=== PATIENT | male | born 1960 | race Caucasian/White ===

== ENCOUNTER 2017-02-03 07:32 | Inpatient (IN) | payer OTHER ==
[2017-02-03] VITALS (10 sets, daily range): BP systolic 92–123; BP diastolic 53–73
[~2017-02-03] VITALS: Ht 165.1 cm; Wt 57.2 kg
[~2017-02-03 07:32] MED LIST: ASPI-482 PO; DIAZ5TAB PO; LEVE500T56 PO; OMEP20CA9 PO; OXYC-323 PO; PANT40TA3 PO
[2017-02-03] MEDS ORDERED: IV NORMAL SALINE 500ML BAG 500 ML IV ONE (07:45)
--- NOTE | 2017-02-03 07:53 | EKG ---
[facility] [address] [place] [address] Test Date: 2017-02-03 Test Time: 07:43:37 Pat Name: MIK BRISENO Department: Room: Gender: M Ncr Operator: : [id number] Requested By: NO NOLAND Order Number: [id number] Reading MD: Yuliana Flores Measurements Intervals [place] Rate: 61 P: 48 LA: 152 QRS: 36 QRSD: 100 T: 51 QT: 424 QTc: 433 Interpretive Statements SINUS RHYTHM NORMAL EKG Electronically Signed On 02-06-2017 11:01:51 CDT by Yuliana Flores
--- NOTE | 2017-02-03 07:55 | PHYS DOC ---
Past Medical History Past Medical History: Cancer, GERD, Hepatitis, Seizure, Additional Disease Additional Past Medical Histor: Hepatitis A,B,C, PANCREATIC CANCER Past Surgical History: No Surgical History Alcohol Use: Heavy Drug Use: Marijuana Adult General Chief Complaint Chief Complaint: MECHANICAL FALL HPI HPI Patient is a 57 year old male who presents with fall, possible syncope. Patient states he was at the [facility], walking down a flight of stairs. He is unsure if he experienced syncopal episode or just became weak in his legs and fell. Unsure how many stairs he descended during the fall. Unsure if he lost consciousness. Complains of headache, neck pain, right-sided rib pain, right upper arm pain, left wrist pain, bilateral knee pain. Did not ambulate after the fall. Unsure if he takes any blood thinners. Denies chest pain, palpitations, shortness of breath, extremity numbness or weakness preceding the fall. Review of Systems Review of Systems Constitutional: Denies fever or chills Eyes: Denies change in visual acuity HENT: Denies nasal congestion or sore throat Respiratory: Denies cough or shortness of breath Cardiovascular: Denies chest pain or edema GI: Denies abdominal pain, nausea, vomiting Musculoskeletal: Reports neck pain, rib pain, and extremity pain as above Integument: Denies rash or skin lesions Neurologic: Reports headache, denies focal weakness or sensory changes Current Medications Current Medications Current Medications Medications (Trade) Dose Ordered Sig/Sylvie Start Time Stop Time Status Last Admin Dose Admin Sodium Chloride 500 ml @ 0 mls/hr 1X ONCE 02/03/17 07:45 02/03/17 07:47 DC 02/03/17 11:04 0 MLS/HR Allergies Allergies Allergies Coded Allergies Type Severity Reaction Last Updated Verified codeine Allergy Intermediate hived 04/25/16 Yes egg Allergy Intermediate 04/25/16 Yes Physical Exam Physical Exam Constitutional: Frail, poor hygiene, no acute distress, non-toxic appearance. HENT: Normocephalic, atraumatic, bilateral external ears normal, oropharynx moist, nose normal. Eyes: PERRLA, EOMI, conjunctiva normal, no discharge. Neck: supple, no stridor. Diffuse midline C-spine tenderness is present Cardiovascular: RRR, no murmurs, no edema. Lungs & Thorax: Diminished, LCTAB, no wheezing, no respiratory distress. Diffuse right-sided rib pain without deformity, step-off, crepitus, ecchymosis Abdomen: soft, nontender, nondistended. Skin: Warm, dry, no erythema, no rash. 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 Left wrist without swelling or deformity, diffusely tender with palpation, no forearm, elbow, shoulder tenderness with palpation, radial pulse 2 +, radial/median/ulnar nerve sensory and motor function intact. Bilateral knees without swelling or deformity, diffusely tender with palpation, pain with flexion bilaterally, negative anterior/posterior drawer bilaterally, stable to valgus/varus stress bilaterally, bilateral DP/PT palpable, sensation intact to bilateral feet Neurologic: Alert and oriented X 3, CN2-12 grossly intact, symmetric strength/ sensation to lower extremities, intact strength/sensation to LUE, RUE above elbow amputation, no focal deficits noted. Psychologic: flat affect Current Patient Data Vital Signs Vital Signs Date Time Temp Pulse Resp B/P (MAP) Pulse Ox O2 Delivery O2 Flow Rate FiO2 02/03/17 07:32 98.4 61 20 124/64 (84) 97 Room Air 98.4 Lab Values Laboratory Tests Test 02/03/17 09:35 White Blood Count 3.6 x10^3/uL (4.0-11.0) L Red Blood Count 3.86 x10^6/uL (4.30-5.70) L Hemoglobin 12.2 g/dL (13.0-17.5) L Hematocrit 36.7 % (39.0-53.0) L Mean Corpuscular Volume 95 fL (79-100) Mean Corpuscular Hemoglobin 32 pg (25-35) Mean Corpuscular Hemoglobin Concent 33 g/dL (31-37) Red Cell Distribution Width 24.6 % (11.5-14.5) H Platelet Count 62 x10^3/uL (140-400) L Neutrophils (%) (Auto) 46 % (31-73) Lymphocytes (%) (Auto) 37 % (24-48) Monocytes (%) (Auto) 12 % (0-9) H Eosinophils (%) (Auto) 4 % (0-3) H Basophils (%) (Auto) 1 % (0-3) Neutrophils # (Auto) 1.7 x10^3uL (1.8-7.7) L Lymphocytes # (Auto) 1.4 x10^3/uL (1.0-4.8) Monocytes # (Auto) 0.4 x10^3/uL (0.0-1.1) Eosinophils # (Auto) 0.1 x10^3/uL (0.0-0.7) Basophils # (Auto) 0.0 x10^3/uL (0.0-0.2) Platelet Estimate Pending Prothrombin Time 15.5 SEC (11.7-14.0) H Prothrombin Time INR 1.3 (0.8-1.1) H Sodium Level 140 mmol/L (136-145) Potassium Level 3.7 mmol/L (3.5-5.1) Chloride Level 105 mmol/L (98-107) Carbon Dioxide Level 26 mmol/L (21-32) Anion Gap 9 (6-14) Blood Urea Nitrogen 15 mg/dL (8-26) Creatinine 0.8 mg/dL (0.7-1.3) Estimated GFR (Cockcroft-Gault) 99.6 BUN/Creatinine Ratio 19 (6-20) Glucose Level 102 mg/dL (70-99) H Calcium Level 8.8 mg/dL (8.5-10.1) Total Bilirubin 1.8 mg/dL (0.2-1.0) H Aspartate Amino Transferase (AST) 95 U/L (15-37) H Alanine Aminotransferase (ALT) 51 U/L (16-63) Alkaline Phosphatase 94 U/L (46-116) Troponin I Quantitative < 0.017 ng/mL (0.000-0.055) AZ-Mxg-S-Type Natriuretic Peptide 72 pg/mL (0-124) Total Protein 6.8 g/dL (6.4-8.2) Albumin 2.4 g/dL (3.4-5.0) L Albumin/Globulin Ratio 0.5 (1.0-1.7) L Ethyl Alcohol Level < 10 mg/dL (0-10) Laboratory Tests 02/03/17 09:35 Laboratory Tests 02/03/17 09:35 EKG EKG Interpreted by me: Normal sinus rhythm rate 61, no acute ST or T wave changes, normal intervals, no ectopy.[] Radiology/Procedures Radiology/Procedures PROCEDURE: RIBS RIGHT AND PA CHEST Indication fall. Pain. A single view of the chest was obtained as well as films targeted to right ribs. The chest is compared to an examination 10/09/2014. The heart and pulmonary vessels and mediastinum appear normal. The lungs are clear of acute infiltrates. There is no pleural fluid or pneumothorax. There is slight irregularity involving some of the mid and lower right ribs. This has a chronic appearance. An acute rib fracture is not seen. IMPRESSION: No acute finding apparent in the chest. No acute right rib fracture seen DICTATED and SIGNED BY: MICHELE NAVARRO MD DATE: 02/03/17923 PROCEDURE: KNEE BILAT 3V Indication fall, pain. AP oblique and lateral views of both knees were obtained. No fracture or dislocation or acute bony abnormality is seen involving either knee. There is possible chondrocalcinosis associated with the right knee. IMPRESSION: No acute bony finding DICTATED and SIGNED BY: MICHELE NAVARRO MD DATE: 02/03/17929 PROCEDURE: HUMERUS RIGHT; WRIST 3V LEFT Right humerus, 2 views, 02/03/2017: History: Fall, pain There is patchy bony demineralization. There has been previous amputation of the right arm at the distal humeral level. No acute fracture or bony abnormality is detected. IMPRESSION: 1. Patchy bony demineralization. 2. No acute bony abnormality is detected. Left wrist, 3 views, 02/03/2017: History: Fall, pain The bony structures are demineralized. There is a surgical screw traversing an old navicular fracture. There is widening of the scapholunate distance compatible with ligamentous injury, probably old. There are moderate degenerative changes at the radiocarpal articulation. A lucency in the distal radius is compatible with an associated degenerative type cysts. There is moderate degenerative change at the first CMC joint. No definite acute fracture is seen. IMPRESSION: Old posttraumatic, postsurgical and moderate degenerative changes as described above. DICTATED and SIGNED BY: JOSE DANIEL ARZATE MD DATE: 02/03/17929 PROCEDURE: CT HEAD AND CERVICAL SPINE WO CT of the head without contrast, 02/03/2017: History: Fall, head and neck pain Comparison is made to a study from 04/23/2016. There is moderate cerebral atrophy. There are minimal deep white matter lucencies bilaterally compatible with chronic ischemic change. There is a small subependymal focus of increased density along the lateral aspect of the posterior portion of the body of the left lateral ventricle. 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 The ventricles are unchanged in size. There is no evidence of acute intracranial hemorrhage or mass effect. IMPRESSION: 1. Chronic findings as described above. 2. No acute intracranial abnormality is detected. CT of the cervical spine without contrast, 02/03/2017: Noncontrast scans were obtained with multiplanar reconstructions produced. There is moderate disc space narrowing and marginal spurring throughout the mid and lower cervical spine. There are moderate degenerative changes involving scattered facet joints bilaterally. There is minimal associated retrolisthesis at C4-5. The combination of findings is causing borderline central spinal stenosis at C4-5 as well as moderate foraminal narrowing at several levels bilaterally. No acute fracture or dislocation is identified. IMPRESSION: 1. Moderately severe multilevel degenerative change. 2. No acute bony abnormality is detected. PQRS Compliance Statement: One or more of the following individualized dose reduction techniques were utilized for this examination: 1. Automated exposure control 2. Adjustment of the mA and/or kV according to patient size 3. Use of iterative reconstruction technique DICTATED and SIGNED BY: JOSE DANIEL ARZATE MD DATE: 02/03/17 0821 [] Course & Med Decision Making Course & Med Decision Making Pertinent Labs and Imaging studies reviewed. (See chart for details) The patient presents with pain after a fall. Possible syncopal episode. Obtained imaging of areas of concern. The cervical collar was placed upon arrival and clinically cleared by me after negative imaging of the cervical spine. Patient unable to ambulate independently. Labs pending at time of admission. I did recommend admission to the hospital for further evaluation and treatment including monitor monitoring after syncopal episode, [] Dragon Disclaimer Dragon Disclaimer This electronic medical record was generated, in whole or in part, using a voice recognition dictation system. Departure Departure Impression: Primary Impression: Syncope Additional Impressions: Closed head injury Cervical strain Multiple contusions Pancytopenia Disposition: ADMITTED INPATIENT Condition: STABLE Referrals: CHESTER MOSCOSO MD (PCP) Problem Qualifiers NO NOLAND MD Feb 03, 2017 07:55
--- NOTE | 2017-02-03 08:33 | RAD ---
CT of the head without contrast, 02/03/2017: History: Fall, head and neck pain Comparison is made to a study from 04/23/2016. There is moderate cerebral atrophy. There are minimal deep white matter lucencies bilaterally compatible with chronic ischemic change. There is a small subependymal focus of increased density along the lateral aspect of the posterior portion of the body of the left lateral ventricle. 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 The ventricles are unchanged in size. There is no evidence of acute intracranial hemorrhage or mass effect. IMPRESSION: 1. Chronic findings as described above. 2. No acute intracranial abnormality is detected. CT of the cervical spine without contrast, 02/03/2017: Noncontrast scans were obtained with multiplanar reconstructions produced. There is moderate disc space narrowing and marginal spurring throughout the mid and lower cervical spine. There are moderate degenerative changes involving scattered facet joints bilaterally. There is minimal associated retrolisthesis at C4-5. The combination of findings is causing borderline central spinal stenosis at C4-5 as well as moderate foraminal narrowing at several levels bilaterally. No acute fracture or dislocation is identified. IMPRESSION: 1. Moderately severe multilevel degenerative change. 2. No acute bony abnormality is detected. PQRS Compliance Statement: One or more of the following individualized dose reduction techniques were utilized for this examination: 1. Automated exposure control 2. Adjustment of the mA and/or kV according to patient size 3. Use of iterative reconstruction technique
--- NOTE | 2017-02-03 09:33 | RAD ---
Indication fall. Pain. A single view of the chest was obtained as well as films targeted to right ribs. The chest is compared to an examination 10/09/2014. The heart and pulmonary vessels and mediastinum appear normal. The lungs are clear of acute infiltrates. There is no pleural fluid or pneumothorax. There is slight irregularity involving some of the mid and lower right ribs. This has a chronic appearance. An acute rib fracture is not seen. IMPRESSION: No acute finding apparent in the chest. No acute right rib fracture seen
--- NOTE | 2017-02-03 09:36 | RAD ---
Indication fall, pain. AP oblique and lateral views of both knees were obtained. No fracture or dislocation or acute bony abnormality is seen involving either knee. There is possible chondrocalcinosis associated with the right knee. IMPRESSION: No acute bony finding
--- NOTE | 2017-02-03 09:37 | RAD ---
Right humerus, 2 views, 02/03/2017: History: Fall, pain There is patchy bony demineralization. There has been previous amputation of the right arm at the distal humeral level. No acute fracture or bony abnormality is detected. IMPRESSION: 1. Patchy bony demineralization. 2. No acute bony abnormality is detected. Left wrist, 3 views, 02/03/2017: History: Fall, pain The bony structures are demineralized. There is a surgical screw traversing an old navicular fracture. There is widening of the scapholunate distance compatible with ligamentous injury, probably old. There are moderate degenerative changes at the radiocarpal articulation. A lucency in the distal radius is compatible with an associated degenerative type cysts. There is moderate degenerative change at the first CMC joint. No definite acute fracture is seen. IMPRESSION: Old posttraumatic, postsurgical and moderate degenerative changes as described above.
[2017-02-03 09:42] LABS: BASO % 1 % (0-3); EOS % 4 % (0-3); HEMATOCRIT 36.7 % (39.0-53.0); HEMOGLOBIN 12.2 g/dL (13.0-17.5); LYMPH # 1.4 x10^3/uL (1.0-4.8); LYMPH % 37 % (24-48); MEAN CORPUSCULAR HEMOGLOBIN 32 pg (25-35); MEAN CORPUSCULAR HGB CONC 33 g/dL (31-37); MEAN CORPUSCULAR VOLUME 95 fL (79-100); MONO % 12 % (0-9); NEUT % 46 % (31-73); PLATELET COUNT 62 x10^3/uL (140-400); RED BLOOD COUNT 3.86 x10^6/uL (4.30-5.70); RED CELL DISTRIBUTION WIDTH 24.6 % (11.5-14.5); WHITE BLOOD COUNT 3.6 x10^3/uL (4.0-11.0)
[2017-02-03 10:00] LABS: CALCIUM 8.8 mg/dL (8.5-10.1); CREATININE 0.8 mg/dL (0.7-1.3); GFR 99.6; POTASSIUM 3.7 mmol/L (3.5-5.1)
[2017-02-03 10:02] LABS: INR 1.3 (0.8-1.1); PROTHROMBIN TIME PATIENT 15.5 SEC (11.7-14.0)
[2017-02-03 10:07] LABS: ALBUMIN 2.4 g/dL (3.4-5.0); ALBUMIN/GLOBULIN RATIO 0.5 (1.0-1.7); TOTAL BILIRUBIN 1.8 mg/dL (0.2-1.0); TOTAL PROTEIN 6.8 g/dL (6.4-8.2)
[2017-02-03] MEDS ORDERED: ONDANSETRON PF 4 MG/2 ML VIAL. IV PRN (10:15)
--- NOTE | 2017-02-03 11:43 | ACF ---
Admit Criteria Forms Admit Criteria Forms Admit Criteria Forms SYNCOPE ( Place 'X' for any and all applicable criteria): Admission is indicated for syncope and 1 or more of the following(1)(2)(3)(4)(5) (6)(7): [ ]I. Hemodynamic instability [ ]II. Suspicion of imminently dangerous cause (eg, subarachnoid hemorrhage, pulmonary embolism) [ ]III. Syncope causing injury requiring hospitalization [ ]IV. Respiratory distress [ ]V. Acute coronary syndrome identified. See Myocardial Infarction or Angina guideline [X ]V. Inpatient admission required rather than observation care (Also use Syncope: Observation Care Criteria as appropriate) because of 1 or more of the following: [ ]1) Cardiac arrhythmias of immediate concern identified or strongly suspected (eg, needs electrophysiologic study) [ ]2) Structural cardiac disorder (eg, aortic stenosis) suspected as cause that requires immediate treatment [ ]3) Neurologic signs or symptoms that are severe or persistent (eg, stroke, seizures, altered mental status) [ ]4) Severe electrolyte abnormalities requiring inpatient care [ ]5) Respiratory symptoms (eg, dyspnea, tachypnea) that are severe or persistent [ ]6) Dehydration that is severe or persistent [ ]7) Continuous intravenous infusion of anticoagulation, platelet inhibitor, vasoactive, or antiarrhythmic medication(15)(16 [ ]8) Pulmonary artery catheter monitoring [ ]9) Temporary pacemaker placement [ ]10) Emergent cardioversion [X ]11) Other condition,treatment,or monitoring requiring inpatient admission Extended stay beyond goal length of stay may be needed for(28) [ ]a) Dangerous arrhythmia(15)(23)(27)(29) [ ]b) Myocardial ischemia [ ]c) Seizure disorder [ ]d) Syncope-related injuries The original [employer] content created by [employer] has been revised. The portions of the content which have been revised are identified through the use of italic text, and [employer] has neither reviewed nor approved the modified material. All other unmodified content is copyright [employer]. Please see references footnoted in the original [employer] edition 2014 MERLE MORAN Feb 03, 2017 11:43
[2017-02-03 11:53] LABS: BARBITURATES NEG (NEG); BENZODIAZEPINES POS (NEG); BILIRUBIN,URINE NEGATIVE (NEG); CANNABINOIDS NEG (NEG); COCAINE NEG (NEG); GLUCOSE,URINE NEGATIVE (NEG); METHADONE NEG (NEG); NITRITE,URINE NEGATIVE (NEG); OPIATES NEG (NEG); PHENCYCLIDINE NEG (NEG); PROTEIN,URINE NEGATIVE (NEG-TRACE)
[2017-02-03 12:09] LABS: BACTERIA,URINE FEW /HPF (0-FEW); RBC,URINE OCC /HPF (0-2); WBC,URINE OCC /HPF (0-4)
[2017-02-03] MEDS ORDERED: PNEUMOCOCCAL VAX SCREEN BY RX. MC ONE (14:00)
[2017-02-03] MEDS ORDERED: PNEUMOC CONJ VACC 23-VALENT 0.5 ML VIAL. VAX IM ONE (14:15)
[2017-02-03 14:40] LABS: ANISOCYTOSIS MOD; PLT ESTIMATE DECREASED (ADEQUATE)
[2017-02-03] MEDS ORDERED: DOCUSATE SODIUM 100 MG CAPSULE. PO PRN (15:00)
[2017-02-03] MEDS ORDERED: ACETAMINOPHEN 325 MG TABLET. PO PRN (15:00)
[2017-02-03] MEDS ORDERED: hydrALAZINE 20 MG/ML VIAL. IVP PRN (15:00)
[2017-02-03] MEDS ORDERED: MORPHINE SULFATE 4 MG/ML DISP.SYRIN. IV PRN (15:30)
[2017-02-03] MEDS: oxyCODONE/APAP 5/325 1 TAB TABLET PO PRN ×2 (15:49→20:38)
--- NOTE | 2017-02-03 16:40 | PDOC1 ---
History and Physical Date of Admission Date of Admission 02/03/17 Identification/Chief Complaint Chief Complaint syncope, fall Problems: Source Source: Chart review, Patient History of Present Illness History of Present Illness HPI HPI Patient is a 57 year old male who presents with fall, and syncope today. pt is a very poor historian. He said he was recently in rehab post his right shoulder amputation from falling. He also said he has an apt but then told me he has been in a [facility] after dc from rehab 4 days ago, and not on any meds for at least days including the pain pain meds. Today he was walking downstairs, then felt lightheaded and denies syncoped. now he c/o back pain, and right shoulder pain ,and left wrist pain which he got fx 6months ago. all images in ER is ok except chronic changes. Denies chest pain, palpitations, shortness of breath, extremity numbness or weakness preceding the fall. Past Medical History Cardiovascular: No pertinent hx Pulmonary: No pertinent hx CENTRAL NERVOUS SYSTEM: Periperal neuropathy, Seizure GI: No pertinent hx Heme/Onc: Cancer Hepatobiliary: Hep A/B/C Psych: Addictions, Bipolar Renal/: No pertinent hx Endocrine: No pertinent hx Past Surgical History Past Surgical History: Other Family History Family History: Heart Disease, Family History Unknown Social History Smoke: No ALCOHOL: heavy Drugs: Marijuana Current Problem List Problem List Problems Medical Problems: (1) Cervical strain Status: Acute (2) Closed head injury Status: Acute (3) Multiple contusions Status: Acute (4) Pancytopenia Status: Acute (5) Syncope Status: Acute Current Medications Current Medications Current Medications Medications (Trade) Dose Ordered Sig/Sylvie Start Time Stop Time Status Last Admin Dose Admin Acetaminophen (Tylenol) 650 mg PRN Q6HRS PRN 02/03/17 15:00 Docusate Sodium (Colace) 100 mg PRN DAILY PRN 02/03/17 15:00 Hydralazine HCl (Apresoline) 10 mg PRN Q4HRS PRN 02/03/17 15:00 Morphine Sulfate 4 mg PRN Q2HR PRN 02/03/17 15:30 Ondansetron HCl (Zofran) 4 mg PRN Q6HRS PRN 02/03/17 15:00 Oxycodone/ Acetaminophen (Percocet 5/325) 1 tab PRN Q4HRS PRN 02/03/17 15:00 02/03/17 15:49 1 TAB Pneumococcal Polyvalent Vaccine (Do NOT chart on this placeholder) 0.5 each 1X ONCE 02/03/17 14:00 02/03/17 14:01 UNV Pneumococcal Polyvalent Vaccine (Pneumovax 23) 0.5 ml ONCE ONCE 02/03/17 14:15 02/03/17 14:16 DC 02/03/17 15:53 0.5 ML Sodium Chloride 500 ml @ 0 mls/hr 1X ONCE 02/03/17 07:45 02/03/17 07:47 DC 02/03/17 11:04 0 MLS/HR Tramadol HCl (Ultram) 50 mg PRN Q6HRS PRN 02/03/17 15:00 Allergies Allergies Allergies Coded Allergies Type Severity Reaction Last Updated Verified codeine Allergy Intermediate hived 04/25/16 Yes egg Allergy Intermediate 04/25/16 Yes ROS Review of System CONSTITUTIONAL: No fever or chills EYES: No recent changes SKIN: No rash or itching CARDIOVASCULAR: No chest pain, syncope, palpitations, or edema RESPIRATORY: No SOB or cough GASTROINTESTINAL: No nausea, vomiting or abdominal pain NEUROLOGICAL: No headaches or weakness ENDOCRINE: No cold or heat intolerance GENITOURINARY: No urgency or frequency of urination MUSCULOSKELETAL: No back pain or joint pain LYMPHATICS: No enlarged lymph nodes PSYCHIATRIC: No anxiety or depression Physical Exam Physical Exam GEN.: No apparent distress. Alert and oriented. HEENT: Head is normocephalic, atraumatic NECK: Supple. LUNGS: Clear to auscultation. HEART: RRR, S1, S2 present. Peripheral pulses intact ABDOMEN: Soft, nontender. Positive bowel sounds. EXTREMITIES: Without any cyanosis. right upper ext amputated NEUROLOGIC: Normal speech, normal tone PSYCHIATRIC: Normal affect, normal mood. SKIN: No ulcerations Vitals Vitals Vital Signs Date Time Temp Pulse Resp B/P (MAP) Pulse Ox O2 Delivery O2 Flow Rate FiO2 02/03/17 15:49 18 Room Air 02/03/17 15:00 97.1 55 118/69 (85) 98 97.1 Labs Labs Laboratory Tests Test 02/03/17 09:35 02/03/17 10:30 White Blood Count 3.6 x10^3/uL (4.0-11.0) Red Blood Count 3.86 x10^6/uL (4.30-5.70) Hemoglobin 12.2 g/dL (13.0-17.5) Hematocrit 36.7 % (39.0-53.0) Mean Corpuscular Volume 95 fL (79-100) Mean Corpuscular Hemoglobin 32 pg (25-35) Mean Corpuscular Hemoglobin Concent 33 g/dL (31-37) Red Cell Distribution Width 24.6 % (11.5-14.5) Platelet Count 62 x10^3/uL (140-400) Neutrophils (%) (Auto) 46 % (31-73) Lymphocytes (%) (Auto) 37 % (24-48) Monocytes (%) (Auto) 12 % (0-9) Eosinophils (%) (Auto) 4 % (0-3) Basophils (%) (Auto) 1 % (0-3) Neutrophils # (Auto) 1.7 x10^3uL (1.8-7.7) Lymphocytes # (Auto) 1.4 x10^3/uL (1.0-4.8) Monocytes # (Auto) 0.4 x10^3/uL (0.0-1.1) Eosinophils # (Auto) 0.1 x10^3/uL (0.0-0.7) Basophils # (Auto) 0.0 x10^3/uL (0.0-0.2) Platelet Estimate Decreased (ADEQUATE) Anisocytosis Mod Prothrombin Time 15.5 SEC (11.7-14.0) Prothromb Time International Ratio 1.3 (0.8-1.1) Sodium Level 140 mmol/L (136-145) Potassium Level 3.7 mmol/L (3.5-5.1) Chloride Level 105 mmol/L (98-107) Carbon Dioxide Level 26 mmol/L (21-32) Anion Gap 9 (6-14) Blood Urea Nitrogen 15 mg/dL (8-26) Creatinine 0.8 mg/dL (0.7-1.3) Estimated GFR (Cockcroft-Gault) 99.6 BUN/Creatinine Ratio 19 (6-20) Glucose Level 102 mg/dL (70-99) Calcium Level 8.8 mg/dL (8.5-10.1) Total Bilirubin 1.8 mg/dL (0.2-1.0) Aspartate Amino Transf (AST/SGOT) 95 U/L (15-37) Alanine Aminotransferase (ALT/SGPT) 51 U/L (16-63) Alkaline Phosphatase 94 U/L (46-116) Troponin I Quantitative < 0.017 ng/mL (0.000-0.055) KX-Era-S-Type Natriuretic Peptide 72 pg/mL (0-124) Total Protein 6.8 g/dL (6.4-8.2) Albumin 2.4 g/dL (3.4-5.0) Albumin/Globulin Ratio 0.5 (1.0-1.7) Ethyl Alcohol Level < 10 mg/dL (0-10) Urine Collection Type Unknown Urine Color Aditi Urine Clarity Clear Urine pH 8.0 Urine Specific [place] 1.010 Urine Protein Negative mg/dL (NEG-TRACE) Urine Glucose (UA) Negative mg/dL (NEG) Urine Ketones (Stick) Negative mg/dL (NEG) Urine Blood Negative (NEG) Urine Nitrite Negative (NEG) Urine Bilirubin Negative (NEG) Urine Urobilinogen Dipstick 4.0 mg/dL (0.2 mg/dL) Urine Leukocyte Esterase Negative (NEG) Urine RBC Occ /HPF (0-2) Urine WBC Occ /HPF (0-4) Urine Bacteria Few /HPF (0-FEW) Urine Opiates Screen Neg (NEG) Urine Methadone Screen Neg (NEG) Urine Barbiturates Neg (NEG) Urine Phencyclidine Screen Neg (NEG) Urine Amphetamine/Methamphetamine Neg (NEG) Urine Benzodiazepines Screen Pos (NEG) Urine Cocaine Screen Neg (NEG) Urine Cannabinoids Screen Neg (NEG) Urine Ethyl Alcohol Neg (NEG) Laboratory Tests Test 02/03/17 09:35 02/03/17 10:30 White Blood Count 3.6 x10^3/uL (4.0-11.0) Red Blood Count 3.86 x10^6/uL (4.30-5.70) Hemoglobin 12.2 g/dL (13.0-17.5) Hematocrit 36.7 % (39.0-53.0) Mean Corpuscular Volume 95 fL (79-100) Mean Corpuscular Hemoglobin 32 pg (25-35) Mean Corpuscular Hemoglobin Concent 33 g/dL (31-37) Red Cell Distribution Width 24.6 % (11.5-14.5) Platelet Count 62 x10^3/uL (140-400) Neutrophils (%) (Auto) 46 % (31-73) Lymphocytes (%) (Auto) 37 % (24-48) Monocytes (%) (Auto) 12 % (0-9) Eosinophils (%) (Auto) 4 % (0-3) Basophils (%) (Auto) 1 % (0-3) Neutrophils # (Auto) 1.7 x10^3uL (1.8-7.7) Lymphocytes # (Auto) 1.4 x10^3/uL (1.0-4.8) Monocytes # (Auto) 0.4 x10^3/uL (0.0-1.1) Eosinophils # (Auto) 0.1 x10^3/uL (0.0-0.7) Basophils # (Auto) 0.0 x10^3/uL (0.0-0.2) Platelet Estimate Decreased (ADEQUATE) Anisocytosis Mod Prothrombin Time 15.5 SEC (11.7-14.0) Prothromb Time International Ratio 1.3 (0.8-1.1) Sodium Level 140 mmol/L (136-145) Potassium Level 3.7 mmol/L (3.5-5.1) Chloride Level 105 mmol/L (98-107) Carbon Dioxide Level 26 mmol/L (21-32) Anion Gap 9 (6-14) Blood Urea Nitrogen 15 mg/dL (8-26) Creatinine 0.8 mg/dL (0.7-1.3) Estimated GFR (Cockcroft-Gault) 99.6 BUN/Creatinine Ratio 19 (6-20) Glucose Level 102 mg/dL (70-99) Calcium Level 8.8 mg/dL (8.5-10.1) Total Bilirubin 1.8 mg/dL (0.2-1.0) Aspartate Amino Transf (AST/SGOT) 95 U/L (15-37) Alanine Aminotransferase (ALT/SGPT) 51 U/L (16-63) Alkaline Phosphatase 94 U/L (46-116) Troponin I Quantitative < 0.017 ng/mL (0.000-0.055) EN-Rlt-P-Type Natriuretic Peptide 72 pg/mL (0-124) Total Protein 6.8 g/dL (6.4-8.2) Albumin 2.4 g/dL (3.4-5.0) Albumin/Globulin Ratio 0.5 (1.0-1.7) Ethyl Alcohol Level < 10 mg/dL (0-10) Urine Collection Type Unknown Urine Color Aditi Urine Clarity Clear Urine pH 8.0 Urine Specific [place] 1.010 Urine Protein Negative mg/dL (NEG-TRACE) Urine Glucose (UA) Negative mg/dL (NEG) Urine Ketones (Stick) Negative mg/dL (NEG) Urine Blood Negative (NEG) Urine Nitrite Negative (NEG) Urine Bilirubin Negative (NEG) Urine Urobilinogen Dipstick 4.0 mg/dL (0.2 mg/dL) Urine Leukocyte Esterase Negative (NEG) Urine RBC Occ /HPF (0-2) Urine WBC Occ /HPF (0-4) Urine Bacteria Few /HPF (0-FEW) Urine Opiates Screen Neg (NEG) Urine Methadone Screen Neg (NEG) Urine Barbiturates Neg (NEG) Urine Phencyclidine Screen Neg (NEG) Urine Amphetamine/Methamphetamine Neg (NEG) Urine Benzodiazepines Screen Pos (NEG) Urine Cocaine Screen Neg (NEG) Urine Cannabinoids Screen Neg (NEG) Urine Ethyl Alcohol Neg (NEG) VTE Prophylaxis Ordered VTE Prophylaxis Devices: Yes VTE Pharmacological Prophylaxi: No Assessment/Plan Assessment/Plan fall, likely not syncoped. back pain with mechanical fall and chronic ext pain H/O hepatitis ABC GERD left wrist post fx sx right arm post amputation h/o alcoholism, but said off ETOH for 1 year drug abuse with marijuana poor home environment plan: neuro consult cont kemargaret for now check orthostatic bp carotid US telet pain contROL dvt ppx gi ppx PTOT SW for home environment eval. CHICO MANZANARES MD Feb 03, 2017 16:40
[2017-02-03] MEDS ORDERED: ENOXAPARIN 40 MG/0.4 ML SYRINGE. SQ SCH (17:00)
[2017-02-03] MEDS: PANTOPRAZOLE 40 MG TABLET.DR. PO SCH (17:10)
[2017-02-03] MEDS: levETIRAcetam 500 MG TABLET PO SCH (20:38)
[2017-02-03] MEDS: diazePAM 5 MG TABLET PO PRN (20:38)
[2017-02-04] MEDS: oxyCODONE/APAP 5/325 1 TAB TABLET PO PRN ×2 (01:36→09:02)
[2017-02-04 03:00] VITALS: BP 98/60
[2017-02-04] MEDS: traMADol 50 MG TABLET PO PRN ×2 (03:21→11:47)
[2017-02-04 05:26] LABS: CALCIUM 8.4 mg/dL (8.5-10.1); CREATININE 0.8 mg/dL (0.7-1.3); GFR 99.6; POTASSIUM 3.1 mmol/L (3.5-5.1)
[2017-02-04 05:30] LABS: BASO % 1 % (0-3); EOS % 9 % (0-3); HEMATOCRIT 32.8 % (39.0-53.0); HEMOGLOBIN 11.4 g/dL (13.0-17.5); LYMPH # 1.5 x10^3/uL (1.0-4.8); LYMPH % 45 % (24-48); MEAN CORPUSCULAR HEMOGLOBIN 33 pg (25-35); MEAN CORPUSCULAR HGB CONC 35 g/dL (31-37); MEAN CORPUSCULAR VOLUME 93 fL (79-100); MONO % 14 % (0-9); NEUT % 31 % (31-73); PLATELET COUNT 61 x10^3/uL (140-400); RED BLOOD COUNT 3.51 x10^6/uL (4.30-5.70); RED CELL DISTRIBUTION WIDTH 24.1 % (11.5-14.5); WHITE BLOOD COUNT 3.4 x10^3/uL (4.0-11.0)
[2017-02-04 07:00] VITALS: BP 99/54
[2017-02-04] MEDS: levETIRAcetam 500 MG TABLET PO SCH (09:00)
[2017-02-04] MEDS: PANTOPRAZOLE 40 MG TABLET.DR. PO SCH ×2 (09:01→17:10)
[2017-02-04] MEDS: ONDANSETRON PF 4 MG/2 ML VIAL. IV PRN (09:06)
[2017-02-04 10:30] LABS: MAGNESIUM 1.7 mg/dL (1.8-2.4); PHOSPHORUS 3.2 mg/dL (2.6-4.7)
[2017-02-04] MEDS ORDERED: POTASSIUM CHLORIDE 20 MEQ TABLET.ER. PO ONE (10:30)
[2017-02-04 11:00] VITALS: BP 97/56
[2017-02-04] MEDS ORDERED: MAGNESIUM SULFATE 2GM 50 ML IV ONE (11:00)
--- NOTE | 2017-02-04 12:15 | PDOC2 ---
NEUROLOGY CONSULT Date of Admission Date of Admission DATE: 02/04/17 TIME: 12:07 Reason for Consult Reason for Consult: Syncope, history of seizures Referring Physician Referring Physician: Dr. Bergeron Source Source: Chart review, Patient History of Present Illness History of Present Illness The patient is a 57-year-old right-handed male who was staying at the [facility] when he fell down some stairs. He tells me that there was no loss of consciousness and E also told the emergency physician the same thing, but Dr. Bergeron states in her note that there was syncope. The patient was here for seizures in the past related alcohol. EEG, 10/14/14 was negative for epileptic activity. The patient has been absent from alcohol for nearly a year, he says. There is no history of stroke or head injury. He feels fine now. Past Medical History Cardiovascular: HTN CENTRAL NERVOUS SYSTEM: Seizure GI: Other ( pancreatitis, also listed pancreatic cancer) Hepatobiliary: Hep A/B/C (C) Psych: Depression Musculoskeletal: low back pain (and neck pain), Other ( left wrist fracture) Renal/: Other ( urinary urgency) Past Surgical History Past Surgical History: Other ( right arm amputated above the elbow for gangrene , left wrist) Family History Family History: No pertinent hx ( negative for epilepsy) Social History Social History Disabled, quit using alcohol a year ago, occasional tobacco, single Current Medications Current Medications Current Medications Sodium Chloride 500 ml @ 0 mls/hr 1X ONCE IV Last administered on 02/03/17t 11 :04; Start 02/03/17 at 07:45; Stop 02/03/17 at 07:47; Status DC Ondansetron HCl (Zofran) 4 mg PRN Q8HRS PRN IV NAUSEA/VOMITING; Start 02/03/17 at 10:15; Stop 02/03/17 at 15:43; Status DC Pneumococcal Polyvalent Vaccine (Do NOT chart on this placeholder) 0.5 each 1X ONCE MC ; Start 02/03/17 at 14:00; Stop 02/03/17 at 14:01; Status UNV Pneumococcal Polyvalent Vaccine (Pneumovax 23) 0.5 ml ONCE ONCE VAX IM Last administered on 02/03/17t 15:53; Start 02/03/17 at 14:15; Stop 02/03/17 at 14:16 ; Status DC Acetaminophen (Tylenol) 650 mg PRN Q6HRS PRN PO FEVER; Start 02/03/17 at 15:00 Ondansetron HCl (Zofran) 4 mg PRN Q6HRS PRN IV NAUSEA/VOMITING Last administered on 02/04/17 09:06; Start 02/03/17 at 15:00 Morphine Sulfate 4 mg PRN Q2HR PRN IV PAIN; Start 02/03/17 at 15:30 Tramadol HCl (Ultram) 50 mg PRN Q6HRS PRN PO MILD PAIN Last administered on 11:47; Start 02/03/17 at 15:00 Hydralazine HCl (Apresoline) 10 mg PRN Q4HRS PRN IVP ELEVATED BP, SEE COMMENTS ; Start 02/03/17 at 15:00 Docusate Sodium (Colace) 100 mg PRN DAILY PRN PO CONSTIPATION; Start 02/03/17 at 15:00 Oxycodone/ Acetaminophen (Percocet 5/325) 1 tab PRN Q4HRS PRN PO MODERATE - SEVERE PAIN Last administered on 02/04/17 09:02; Start 02/03/17 at 15:00 Diazepam (Valium) 5 mg PRN QHS PRN PO ANXIETY / AGITATION Last administered on 02/03/17 20:38; Start 02/03/17 at 16:30 Levetiracetam (Keppra) 500 mg BID PO Last administered on 02/04/17 09:00; Start 02/03/17 at 21:00 Pantoprazole Sodium (Protonix) 40 mg BIDAC PO Last administered on 02/04/17 09 :01; Start 02/03/17 at 16:30 Enoxaparin Sodium (Lovenox 40mg Syringe) 40 mg Q24H SQ Last administered on 17:11; Start 02/03/17 at 17:00; Stop 02/04/17 at 09:58; Status DC Potassium Chloride (Klor-Con) 40 meq 1X ONCE PO Last administered on 11:47; Start 02/04/17 at 10:30; Stop 02/04/17 at 10:31; Status DC Magnesium Sulfate/ Dextrose 50 ml @ 25 mls/hr 1X ONCE IV ; Start 02/04/17 at 11 :00; Stop 02/04/17 at 12:59 Active Scripts Active Protonix (Pantoprazole Sodium) 40 Mg Tablet.dr 1 Tab PO BID Percocet 5-325 Mg Tablet (Oxycodone/Acetaminophen) 1 Each Tablet 1-2 Tab PO Q4- 6HRS Reported Keppra (Levetiracetam) 500 Mg Tablet Unknown Dose PO Valium (Diazepam) 5 Mg Tablet 5 Mg PO PRN Allergies Allergies: Coded Allergies: codeine (Verified Allergy, Intermediate, hived, 04/25/16) egg (Verified Allergy, Intermediate, 04/25/16) ROS Review of System Negative for fevers, chills, weight loss, shortness of breath, chest pain, indigestion, hematochezia, melena. Positive for dysuria. Full 14-point review systems is negative. Physical Exam Physical Examination PHYSICAL EXAMINATION: Vital signs: see above. General appearance is normal and in no acute distress. HEENT: Normocephalic and nontraumatic. Eyes, nose, ears, and throat are unremarkable. Neck is supple. No lymphadenopathy. No bruits are heard over the carotid artery. No crepitus. Extremities: Right above the elbow amputation NEUROLOGICAL EXAMINATION: Mental Status Examination: Alert. Oriented to time, place, and person. Answers questions and follows commends. Pupils are equal round and reactive to light and accommodation. Extraocular movements are intact. Visual field exam shows no defect on the direct confrontation. No motor or sensory deficits on the facial exam. Uvula in the midline and the soft palate elevated symmetrically. No deviation of the tongue to any direction. Gross hearing is normal. Shoulder shrug normal. Muscle tone is normal. Muscle strength is 5. Deep tendon reflexes are 2+ all around. Plantar reflex is with flexion response bilaterally. Labczy-ct-sruv test performance is accurate. Alternative movements are accurate. Gait is ataxic. Sensory exam shows no deficits. No other cerebellar signs are elicited. Vitals VITALS Vital Signs Date Time Temp Pulse Resp B/P (MAP) Pulse Ox O2 Delivery O2 Flow Rate FiO2 02/04/17 11:47 20 Room Air 02/04/17 11:00 97.9 58 97/56 (70) 95 97.9 Labs Labs Laboratory Tests Test 02/03/17 09:35 02/03/17 10:30 02/03/17 12:00 02/04/17 04:14 White Blood Count 3.6 x10^3/uL (4.0-11.0) 3.4 x10^3/uL (4.0-11.0) Red Blood Count 3.86 x10^6/uL (4.30-5.70) 3.51 x10^6/uL (4.30-5.70) Hemoglobin 12.2 g/dL (13.0-17.5) 11.4 g/dL (13.0-17.5) Hematocrit 36.7 % (39.0-53.0) 32.8 % (39.0-53.0) Mean Corpuscular Volume 95 fL (79-100) 93 fL (79-100) Mean Corpuscular Hemoglobin 32 pg (25-35) 33 pg (25-35) Mean Corpuscular Hemoglobin Concent 33 g/dL (31-37) 35 g/dL (31-37) Red Cell Distribution Width 24.6 % (11.5-14.5) 24.1 % (11.5-14.5) Platelet Count 62 x10^3/uL (140-400) 61 x10^3/uL (140-400) Neutrophils (%) (Auto) 46 % (31-73) 31 % (31-73) Lymphocytes (%) (Auto) 37 % (24-48) 45 % (24-48) Monocytes (%) (Auto) 12 % (0-9) 14 % (0-9) Eosinophils (%) (Auto) 4 % (0-3) 9 % (0-3) Basophils (%) (Auto) 1 % (0-3) 1 % (0-3) Neutrophils # (Auto) 1.7 x10^3uL (1.8-7.7) 1.0 x10^3uL (1.8-7.7) Lymphocytes # (Auto) 1.4 x10^3/uL (1.0-4.8) 1.5 x10^3/uL (1.0-4.8) Monocytes # (Auto) 0.4 x10^3/uL (0.0-1.1) 0.5 x10^3/uL (0.0-1.1) Eosinophils # (Auto) 0.1 x10^3/uL (0.0-0.7) 0.3 x10^3/uL (0.0-0.7) Basophils # (Auto) 0.0 x10^3/uL (0.0-0.2) 0.0 x10^3/uL (0.0-0.2) Platelet Estimate Decreased (ADEQUATE) Anisocytosis Mod Prothrombin Time 15.5 SEC (11.7-14.0) Prothromb Time International Ratio 1.3 (0.8-1.1) Sodium Level 140 mmol/L (136-145) 144 mmol/L (136-145) Potassium Level 3.7 mmol/L (3.5-5.1) 3.1 mmol/L (3.5-5.1) Chloride Level 105 mmol/L (98-107) 110 mmol/L (98-107) Carbon Dioxide Level 26 mmol/L (21-32) 27 mmol/L (21-32) Anion Gap 9 (6-14) 7 (6-14) Blood Urea Nitrogen 15 mg/dL (8-26) 13 mg/dL (8-26) Creatinine 0.8 mg/dL (0.7-1.3) 0.8 mg/dL (0.7-1.3) Estimated GFR (Cockcroft-Gault) 99.6 99.6 BUN/Creatinine Ratio 19 (6-20) Glucose Level 102 mg/dL (70-99) 103 mg/dL (70-99) Calcium Level 8.8 mg/dL (8.5-10.1) 8.4 mg/dL (8.5-10.1) Total Bilirubin 1.8 mg/dL (0.2-1.0) Aspartate Amino Transf (AST/SGOT) 95 U/L (15-37) Alanine Aminotransferase (ALT/SGPT) 51 U/L (16-63) Alkaline Phosphatase 94 U/L (46-116) Troponin I Quantitative < 0.017 ng/mL (0.000-0.055) QA-Nix-M-Type Natriuretic Peptide 72 pg/mL (0-124) Total Protein 6.8 g/dL (6.4-8.2) Albumin 2.4 g/dL (3.4-5.0) Albumin/Globulin Ratio 0.5 (1.0-1.7) Ethyl Alcohol Level < 10 mg/dL (0-10) Urine Collection Type Unknown Urine Color Aditi Urine Clarity Clear Urine pH 8.0 Urine Specific [place] 1.010 Urine Protein Negative mg/dL (NEG-TRACE) Urine Glucose (UA) Negative mg/dL (NEG) Urine Ketones (Stick) Negative mg/dL (NEG) Urine Blood Negative (NEG) Urine Nitrite Negative (NEG) Urine Bilirubin Negative (NEG) Urine Urobilinogen Dipstick 4.0 mg/dL (0.2 mg/dL) Urine Leukocyte Esterase Negative (NEG) Urine RBC Occ /HPF (0-2) Urine WBC Occ /HPF (0-4) Urine Bacteria Few /HPF (0-FEW) Urine Opiates Screen Neg (NEG) Urine Methadone Screen Neg (NEG) Urine Barbiturates Neg (NEG) Urine Phencyclidine Screen Neg (NEG) Urine Amphetamine/Methamphetamine Neg (NEG) Urine Benzodiazepines Screen Pos (NEG) Urine Cocaine Screen Neg (NEG) Urine Cannabinoids Screen Neg (NEG) Urine Ethyl Alcohol Neg (NEG) Nasal Screen MRSA (PCR) Negative (Negative) Phosphorus Level 3.2 mg/dL (2.6-4.7) Magnesium Level 1.7 mg/dL (1.8-2.4) Laboratory Tests Test 02/04/17 04:14 White Blood Count 3.4 x10^3/uL (4.0-11.0) Red Blood Count 3.51 x10^6/uL (4.30-5.70) Hemoglobin 11.4 g/dL (13.0-17.5) Hematocrit 32.8 % (39.0-53.0) Mean Corpuscular Volume 93 fL (79-100) Mean Corpuscular Hemoglobin 33 pg (25-35) Mean Corpuscular Hemoglobin Concent 35 g/dL (31-37) Red Cell Distribution Width 24.1 % (11.5-14.5) Platelet Count 61 x10^3/uL (140-400) Neutrophils (%) (Auto) 31 % (31-73) Lymphocytes (%) (Auto) 45 % (24-48) Monocytes (%) (Auto) 14 % (0-9) Eosinophils (%) (Auto) 9 % (0-3) Basophils (%) (Auto) 1 % (0-3) Neutrophils # (Auto) 1.0 x10^3uL (1.8-7.7) Lymphocytes # (Auto) 1.5 x10^3/uL (1.0-4.8) Monocytes # (Auto) 0.5 x10^3/uL (0.0-1.1) Eosinophils # (Auto) 0.3 x10^3/uL (0.0-0.7) Basophils # (Auto) 0.0 x10^3/uL (0.0-0.2) Sodium Level 144 mmol/L (136-145) Potassium Level 3.1 mmol/L (3.5-5.1) Chloride Level 110 mmol/L (98-107) Carbon Dioxide Level 27 mmol/L (21-32) Anion Gap 7 (6-14) Blood Urea Nitrogen 13 mg/dL (8-26) Creatinine 0.8 mg/dL (0.7-1.3) Estimated GFR (Cockcroft-Gault) 99.6 Glucose Level 103 mg/dL (70-99) Calcium Level 8.4 mg/dL (8.5-10.1) Phosphorus Level 3.2 mg/dL (2.6-4.7) Magnesium Level 1.7 mg/dL (1.8-2.4) Images Images CT of the head without contrast, 02/03/2017: History: Fall, head and neck pain Comparison is made to a study from 04/23/2016. There is moderate cerebral atrophy. There are minimal deep white matter lucencies bilaterally compatible with chronic ischemic change. There is a small subependymal focus of increased density along the lateral aspect of the posterior portion of the body of the left lateral ventricle. 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 The ventricles are unchanged in size. There is no evidence of acute intracranial hemorrhage or mass effect. IMPRESSION: 1. Chronic findings as described above. 2. No acute intracranial abnormality is detected. CT of the cervical spine without contrast, 02/03/2017: Noncontrast scans were obtained with multiplanar reconstructions produced. There is moderate disc space narrowing and marginal spurring throughout the mid and lower cervical spine. There are moderate degenerative changes involving scattered facet joints bilaterally. There is minimal associated retrolisthesis at C4-5. The combination of findings is causing borderline central spinal stenosis at C4-5 as well as moderate foraminal narrowing at several levels bilaterally. No acute fracture or dislocation is identified. IMPRESSION: 1. Moderately severe multilevel degenerative change. 2. No acute bony abnormality is detected. Assessment/Plan Assessment/Plan Impression: The patient says the slip down some stairs, and did not lose consciousness. No one reported any type of seizure activity this time. He has a history of seizures related alcohol, but he has had none, he says, and over a year. He is a poor historian but otherwise shows no evidence of dementia, he still may have some cognitive impairment from alcohol Gait disorder, probably alcohol-related. He does have cervical spondylosis but no bedside evidence of myelopathy. Recommendations: PT and OT I see no need for additional neurological studies such as MRI or EEG No need to start anticonvulsants. Thank you for letting me help with the patient's care. WERO MORATAYA MD Feb 04, 2017 12:15
--- NOTE | 2017-02-04 12:35 | PDOC ---
PROGRESS NOTES Chief Complaint Chief Complaint fall from stairs with lightheaded, likely not syncoped. 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 joe galdamez for now asked nurse to get home meds from rehab check orthostatic bp carotid US telet pain contROL replete K, mag check tsh, vib12 dc dvt ppx gi ppx PTOT SW for home environment eval. History of Present Illness History of Present Illness ROS: no fever, chills, sob or chest pain denies syncoped very poor historian. said he was out of [facility] 4days ago, but told me only in the [facility] 1 day, and cannot reach his friend who has his money x2 days. now he told me he lost his apt where he lived for 3 months since in hosp for a long time. i told nurse to call the rehab, and they told us pt was DCed 1 month ago pt said he was taking many meds in the rehab, but doesnot know which ones he also said he had seizure history, but cannot tell me why or related to alcohol altho he told neuro 2/2 alcohol. + nausea, lightheaded, k 3.1, Mag 1.7 dysuria Vitals Vitals Vital Signs Date Time Temp Pulse Resp B/P (MAP) Pulse Ox O2 Delivery O2 Flow Rate FiO2 02/04/17 11:47 20 Room Air 02/04/17 11:00 97.9 58 97/56 (70) 95 97.9 Physical Exam Physical Exam right neck has IV access right arm post amputation General: Alert, Oriented X3, Cooperative Heart: Regular rate, Normal S1 Lungs: Clear Abdomen: Normal bowel sounds, Soft Extremities: No clubbing, No cyanosis Skin: No rashes Labs LABS Laboratory Tests Test 02/04/17 04:14 White Blood Count 3.4 x10^3/uL (4.0-11.0) Red Blood Count 3.51 x10^6/uL (4.30-5.70) Hemoglobin 11.4 g/dL (13.0-17.5) Hematocrit 32.8 % (39.0-53.0) Mean Corpuscular Volume 93 fL (79-100) Mean Corpuscular Hemoglobin 33 pg (25-35) Mean Corpuscular Hemoglobin Concent 35 g/dL (31-37) Red Cell Distribution Width 24.1 % (11.5-14.5) Platelet Count 61 x10^3/uL (140-400) Neutrophils (%) (Auto) 31 % (31-73) Lymphocytes (%) (Auto) 45 % (24-48) Monocytes (%) (Auto) 14 % (0-9) Eosinophils (%) (Auto) 9 % (0-3) Basophils (%) (Auto) 1 % (0-3) Neutrophils # (Auto) 1.0 x10^3uL (1.8-7.7) Lymphocytes # (Auto) 1.5 x10^3/uL (1.0-4.8) Monocytes # (Auto) 0.5 x10^3/uL (0.0-1.1) Eosinophils # (Auto) 0.3 x10^3/uL (0.0-0.7) Basophils # (Auto) 0.0 x10^3/uL (0.0-0.2) Sodium Level 144 mmol/L (136-145) Potassium Level 3.1 mmol/L (3.5-5.1) Chloride Level 110 mmol/L (98-107) Carbon Dioxide Level 27 mmol/L (21-32) Anion Gap 7 (6-14) Blood Urea Nitrogen 13 mg/dL (8-26) Creatinine 0.8 mg/dL (0.7-1.3) Estimated GFR (Cockcroft-Gault) 99.6 Glucose Level 103 mg/dL (70-99) Calcium Level 8.4 mg/dL (8.5-10.1) Phosphorus Level 3.2 mg/dL (2.6-4.7) Magnesium Level 1.7 mg/dL (1.8-2.4) Assessment and Plan Assessmemt and Plan Problems Medical Problems: (1) Cervical strain Status: Acute (2) Closed head injury Status: Acute (3) Multiple contusions Status: Acute (4) Pancytopenia Status: Acute (5) Syncope Status: Acute Problems: Comment Review of Relevant I have reviewed the following items farrah (where applicable) has been applied. Labs Laboratory Tests Test 02/03/17 09:35 02/03/17 10:30 02/03/17 12:00 02/04/17 04:14 White Blood Count 3.6 x10^3/uL (4.0-11.0) 3.4 x10^3/uL (4.0-11.0) Red Blood Count 3.86 x10^6/uL (4.30-5.70) 3.51 x10^6/uL (4.30-5.70) Hemoglobin 12.2 g/dL (13.0-17.5) 11.4 g/dL (13.0-17.5) Hematocrit 36.7 % (39.0-53.0) 32.8 % (39.0-53.0) Mean Corpuscular Volume 95 fL (79-100) 93 fL (79-100) Mean Corpuscular Hemoglobin 32 pg (25-35) 33 pg (25-35) Mean Corpuscular Hemoglobin Concent 33 g/dL (31-37) 35 g/dL (31-37) Red Cell Distribution Width 24.6 % (11.5-14.5) 24.1 % (11.5-14.5) Platelet Count 62 x10^3/uL (140-400) 61 x10^3/uL (140-400) Neutrophils (%) (Auto) 46 % (31-73) 31 % (31-73) Lymphocytes (%) (Auto) 37 % (24-48) 45 % (24-48) Monocytes (%) (Auto) 12 % (0-9) 14 % (0-9) Eosinophils (%) (Auto) 4 % (0-3) 9 % (0-3) Basophils (%) (Auto) 1 % (0-3) 1 % (0-3) Neutrophils # (Auto) 1.7 x10^3uL (1.8-7.7) 1.0 x10^3uL (1.8-7.7) Lymphocytes # (Auto) 1.4 x10^3/uL (1.0-4.8) 1.5 x10^3/uL (1.0-4.8) Monocytes # (Auto) 0.4 x10^3/uL (0.0-1.1) 0.5 x10^3/uL (0.0-1.1) Eosinophils # (Auto) 0.1 x10^3/uL (0.0-0.7) 0.3 x10^3/uL (0.0-0.7) Basophils # (Auto) 0.0 x10^3/uL (0.0-0.2) 0.0 x10^3/uL (0.0-0.2) Platelet Estimate Decreased (ADEQUATE) Anisocytosis Mod Prothrombin Time 15.5 SEC (11.7-14.0) Prothromb Time International Ratio 1.3 (0.8-1.1) Sodium Level 140 mmol/L (136-145) 144 mmol/L (136-145) Potassium Level 3.7 mmol/L (3.5-5.1) 3.1 mmol/L (3.5-5.1) Chloride Level 105 mmol/L (98-107) 110 mmol/L (98-107) Carbon Dioxide Level 26 mmol/L (21-32) 27 mmol/L (21-32) Anion Gap 9 (6-14) 7 (6-14) Blood Urea Nitrogen 15 mg/dL (8-26) 13 mg/dL (8-26) Creatinine 0.8 mg/dL (0.7-1.3) 0.8 mg/dL (0.7-1.3) Estimated GFR (Cockcroft-Gault) 99.6 99.6 BUN/Creatinine Ratio 19 (6-20) Glucose Level 102 mg/dL (70-99) 103 mg/dL (70-99) Calcium Level 8.8 mg/dL (8.5-10.1) 8.4 mg/dL (8.5-10.1) Total Bilirubin 1.8 mg/dL (0.2-1.0) Aspartate Amino Transf (AST/SGOT) 95 U/L (15-37) Alanine Aminotransferase (ALT/SGPT) 51 U/L (16-63) Alkaline Phosphatase 94 U/L (46-116) Troponin I Quantitative < 0.017 ng/mL (0.000-0.055) BR-Unl-Z-Type Natriuretic Peptide 72 pg/mL (0-124) Total Protein 6.8 g/dL (6.4-8.2) Albumin 2.4 g/dL (3.4-5.0) Albumin/Globulin Ratio 0.5 (1.0-1.7) Ethyl Alcohol Level < 10 mg/dL (0-10) Urine Collection Type Unknown Urine Color Aditi Urine Clarity Clear Urine pH 8.0 Urine Specific [place] 1.010 Urine Protein Negative mg/dL (NEG-TRACE) Urine Glucose (UA) Negative mg/dL (NEG) Urine Ketones (Stick) Negative mg/dL (NEG) Urine Blood Negative (NEG) Urine Nitrite Negative (NEG) Urine Bilirubin Negative (NEG) Urine Urobilinogen Dipstick 4.0 mg/dL (0.2 mg/dL) Urine Leukocyte Esterase Negative (NEG) Urine RBC Occ /HPF (0-2) Urine WBC Occ /HPF (0-4) Urine Bacteria Few /HPF (0-FEW) Urine Opiates Screen Neg (NEG) Urine Methadone Screen Neg (NEG) Urine Barbiturates Neg (NEG) Urine Phencyclidine Screen Neg (NEG) Urine Amphetamine/Methamphetamine Neg (NEG) Urine Benzodiazepines Screen Pos (NEG) Urine Cocaine Screen Neg (NEG) Urine Cannabinoids Screen Neg (NEG) Urine Ethyl Alcohol Neg (NEG) Nasal Screen MRSA (PCR) Negative (Negative) Phosphorus Level 3.2 mg/dL (2.6-4.7) Magnesium Level 1.7 mg/dL (1.8-2.4) Laboratory Tests Test 02/04/17 04:14 White Blood Count 3.4 x10^3/uL (4.0-11.0) Red Blood Count 3.51 x10^6/uL (4.30-5.70) Hemoglobin 11.4 g/dL (13.0-17.5) Hematocrit 32.8 % (39.0-53.0) Mean Corpuscular Volume 93 fL (79-100) Mean Corpuscular Hemoglobin 33 pg (25-35) Mean Corpuscular Hemoglobin Concent 35 g/dL (31-37) Red Cell Distribution Width 24.1 % (11.5-14.5) Platelet Count 61 x10^3/uL (140-400) Neutrophils (%) (Auto) 31 % (31-73) Lymphocytes (%) (Auto) 45 % (24-48) Monocytes (%) (Auto) 14 % (0-9) Eosinophils (%) (Auto) 9 % (0-3) Basophils (%) (Auto) 1 % (0-3) Neutrophils # (Auto) 1.0 x10^3uL (1.8-7.7) Lymphocytes # (Auto) 1.5 x10^3/uL (1.0-4.8) Monocytes # (Auto) 0.5 x10^3/uL (0.0-1.1) Eosinophils # (Auto) 0.3 x10^3/uL (0.0-0.7) Basophils # (Auto) 0.0 x10^3/uL (0.0-0.2) Sodium Level 144 mmol/L (136-145) Potassium Level 3.1 mmol/L (3.5-5.1) Chloride Level 110 mmol/L (98-107) Carbon Dioxide Level 27 mmol/L (21-32) Anion Gap 7 (6-14) Blood Urea Nitrogen 13 mg/dL (8-26) Creatinine 0.8 mg/dL (0.7-1.3) Estimated GFR (Cockcroft-Gault) 99.6 Glucose Level 103 mg/dL (70-99) Calcium Level 8.4 mg/dL (8.5-10.1) Phosphorus Level 3.2 mg/dL (2.6-4.7) Magnesium Level 1.7 mg/dL (1.8-2.4) Medications Current Medications Sodium Chloride 500 ml @ 0 mls/hr 1X ONCE IV Last administered on 02/03/17 11 :04; Start 02/03/17 at 07:45; Stop 02/03/17 at 07:47; Status DC Ondansetron HCl (Zofran) 4 mg PRN Q8HRS PRN IV NAUSEA/VOMITING; Start 02/03/17 at 10:15; Stop 02/03/17 at 15:43; Status DC Pneumococcal Polyvalent Vaccine (Do NOT chart on this placeholder) 0.5 each 1X ONCE MC ; Start 02/03/17 at 14:00; Stop 02/03/17 at 14:01; Status UNV Pneumococcal Polyvalent Vaccine (Pneumovax 23) 0.5 ml ONCE ONCE VAX IM Last administered on 02/03/17 15:53; Start 02/03/17 at 14:15; Stop 02/03/17 at 14:16 ; Status DC Acetaminophen (Tylenol) 650 mg PRN Q6HRS PRN PO FEVER; Start 02/03/17 at 15:00 Ondansetron HCl (Zofran) 4 mg PRN Q6HRS PRN IV NAUSEA/VOMITING Last administered on 02/04/17 09:06; Start 02/03/17 at 15:00 Morphine Sulfate 4 mg PRN Q2HR PRN IV PAIN; Start 02/03/17 at 15:30 Tramadol HCl (Ultram) 50 mg PRN Q6HRS PRN PO MILD PAIN Last administered on 11:47; Start 02/03/17 at 15:00 Hydralazine HCl (Apresoline) 10 mg PRN Q4HRS PRN IVP ELEVATED BP, SEE COMMENTS ; Start 02/03/17 at 15:00 Docusate Sodium (Colace) 100 mg PRN DAILY PRN PO CONSTIPATION; Start 02/03/17 at 15:00 Oxycodone/ Acetaminophen (Percocet 5/325) 1 tab PRN Q4HRS PRN PO MODERATE - SEVERE PAIN Last administered on 02/04/17 09:02; Start 02/03/17 at 15:00 Diazepam (Valium) 5 mg PRN QHS PRN PO ANXIETY / AGITATION Last administered on 02/03/17 20:38; Start 02/03/17 at 16:30 Levetiracetam (Keppra) 500 mg BID PO Last administered on 02/04/17 09:00; Start 02/03/17 at 21:00 Pantoprazole Sodium (Protonix) 40 mg BIDAC PO Last administered on 02/04/17 09 :01; Start 02/03/17 at 16:30 Enoxaparin Sodium (Lovenox 40mg Syringe) 40 mg Q24H SQ Last administered on 17:11; Start 02/03/17 at 17:00; Stop 02/04/17 at 09:58; Status DC Potassium Chloride (Klor-Con) 40 meq 1X ONCE PO Last administered on 11:47; Start 02/04/17 at 10:30; Stop 02/04/17 at 10:31; Status DC Magnesium Sulfate/ Dextrose 50 ml @ 25 mls/hr 1X ONCE IV ; Start 02/04/17 at 11 :00; Stop 02/04/17 at 12:59 Active Scripts Active Protonix (Pantoprazole Sodium) 40 Mg Tablet.dr 1 Tab PO BID Percocet 5-325 Mg Tablet (Oxycodone/Acetaminophen) 1 Each Tablet 1-2 Tab PO Q4- 6HRS Reported Keppra (Levetiracetam) 500 Mg Tablet Unknown Dose PO Valium (Diazepam) 5 Mg Tablet 5 Mg PO PRN Vitals/I & O Vital Sign - Last 24 Hours 02/03/17 02/03/17 02/03/17 02/03/17 12:35 13:25 15:00 15:49 Temp 97.9 97.1 97.9 97.1 Pulse 58 55 Resp 18 18 B/P (MAP) 122/71 (88) 118/69 (85) Pulse Ox 97 98 O2 Delivery Room Air Room Air Room Air 02/03/17 02/03/17 02/03/17 02/03/17 16:55 17:00 17:05 19:00 Temp 97.7 97.7 Pulse 71 77 94 65 Resp 18 18 18 20 B/P (MAP) 108/55 (72) 123/68 (86) 120/73 (89) 106/57 (73) Pulse Ox 95 94 94 94 O2 Delivery Room Air Room Air Room Air Room Air 02/03/17 02/03/17 02/03/17 02/03/17 19:02 19:04 19:33 20:38 Pulse 71 79 Resp 18 18 18 B/P (MAP) 114/61 (78) 101/67 (78) Pulse Ox 95 94 94 O2 Delivery Room Air Room Air Room Air Room Air 02/03/17 02/04/17 02/04/17 02/04/17 23:00 01:36 02:36 03:00 Temp 97.9 97.8 97.9 97.8 Pulse 59 57 Resp 20 18 20 B/P (MAP) 92/53 (66) 98/60 (73) Pulse Ox 95 95 95 93 O2 Delivery Room Air Room Air Room Air 02/04/17 02/04/17 02/04/17 02/04/17 03:21 04:21 07:00 08:00 Temp 97.9 97.9 Pulse 57 Resp 18 18 16 B/P (MAP) 99/54 (69) Pulse Ox 93 93 94 O2 Delivery Room Air Room Air Room Air Room Air 02/04/17 02/04/17 02/04/17 02/04/17 09:02 10:02 11:00 11:47 Temp 97.9 97.9 Pulse 58 Resp 20 18 18 20 B/P (MAP) 97/56 (70) Pulse Ox 95 O2 Delivery Room Air Room Air Room Air Room Air Intake and Output 02/04/17 02/04/17 02/05/17 15:00 23:00 07:00 Intake Total 300 ml Balance 300 ml CHICO MANZANARES MD Feb 04, 2017 12:35
[2017-02-04] MEDS ORDERED: HYDROcodone/APAP 10/325 1 TAB TABLET PO PRN (14:15)
[2017-02-04 15:14] VITALS: BP 99/57
[2017-02-04 15:31] LABS: BILIRUBIN,URINE SMALL (NEG); GLUCOSE,URINE NEGATIVE (NEG); NITRITE,URINE NEGATIVE (NEG); PROTEIN,URINE NEGATIVE (NEG-TRACE)
[2017-02-04] MEDS: oxyCODONE/APAP 10/325 1 TAB TABLET PO PRN ×2 (15:47→20:25)
[2017-02-04 16:00] LABS: BACTERIA,URINE 0 /HPF (0-FEW); RBC,URINE 0 /HPF (0-2); SQUAMOUS EPITHELIAL CELL,UR FEW /LPF; WBC,URINE 0 /HPF (0-4)
--- NOTE | 2017-02-04 17:15 | RAD ---
Indication signs and symptoms of possible CVA. Grayscale color and Doppler analysis was performed. The left carotid system was evaluated. The right was not. There were bandages on the right side precluding evaluation of the right carotid bifurcation. On the left there is some minimal plaquing. The color Doppler images do not suggest significant turbulence. The common carotid waveform and velocities are normal. The external carotid has a normal appearance. The internal carotid waveform and velocities are normal. The vertebral is patent and demonstrates normal antegrade flow. The visualized left subclavian appears unremarkable. IMPRESSION: On the left there is no evidence of hemodynamically significant stenosis. Stenosis 0-50% The right carotid bifurcation was not evaluated. Note: Stenosis calculations for CT, MR and conventional angiography are based upon determination of the distal ICA diameter in accordance with the NASCET methodology. Stenosis calculations for doppler studies are derived from validated velocity criteria which are known to correlate with NASCET methodology of determining stenosis.
[2017-02-04 19:00] VITALS: BP_SYST 105; BP_SYST 112; BP_DIAS 60; BP_DIAS 62
[2017-02-04] MEDS: diazePAM 5 MG TABLET PO PRN (20:25)
[2017-02-04 23:00] VITALS: BP 112/60
[2017-02-05] MEDS: oxyCODONE/APAP 10/325 1 TAB TABLET PO PRN ×5 (00:25→19:36)
[2017-02-05 03:00] VITALS: BP 108/60
[2017-02-05 05:37] LABS: BASO % 0 % (0-3); EOS % 10 % (0-3); HEMATOCRIT 33.7 % (39.0-53.0); HEMOGLOBIN 11.6 g/dL (13.0-17.5); LYMPH # 1.7 x10^3/uL (1.0-4.8); LYMPH % 43 % (24-48); MEAN CORPUSCULAR HEMOGLOBIN 32 pg (25-35); MEAN CORPUSCULAR HGB CONC 34 g/dL (31-37); MEAN CORPUSCULAR VOLUME 95 fL (79-100); MONO % 9 % (0-9); NEUT % 37 % (31-73); PLATELET COUNT 55 x10^3/uL (140-400); RED BLOOD COUNT 3.57 x10^6/uL (4.30-5.70); WHITE BLOOD COUNT 3.8 x10^3/uL (4.0-11.0)
[2017-02-05 05:43] LABS: CALCIUM 7.9 mg/dL (8.5-10.1); CREATININE 0.8 mg/dL (0.7-1.3); GFR 99.6; MAGNESIUM 2.1 mg/dL (1.8-2.4); POTASSIUM 4.1 mmol/L (3.5-5.1)
[2017-02-05 07:00] VITALS: BP 131/71
[2017-02-05] MEDS: PANTOPRAZOLE 40 MG TABLET.DR. PO SCH ×2 (08:33→17:15)
[2017-02-05] MEDS: ONDANSETRON PF 4 MG/2 ML VIAL. IV PRN (08:37)
--- NOTE | 2017-02-05 10:35 | PDOC ---
PROGRESS NOTES Assessment Problems Medical Problems: (1) Cervical strain Status: Acute (2) Closed head injury Status: Acute (3) Multiple contusions Status: Acute (4) Pancytopenia Status: Acute (5) Syncope Status: Acute The patient says the slip down some stairs, and did not lose consciousness. No one reported any type of seizure activity this time. He has a history of seizures related alcohol, but he has had none, he says, and over a year. He is a poor historian but otherwise shows no evidence of dementia, he still may have some cognitive impairment from alcohol Gait disorder, probably alcohol-related. He does have cervical spondylosis but no bedside evidence of myelopathy. Plan PT and OT I see no need for additional neurological studies such as MRI or EEG No need to start anticonvulsants. He needs SNU placement due to the gait disorder, agree with physical therapy Subjective He complains of chronic pain in the right arm and chest ever since his amputation Objective Vital Signs Date Time Temp Pulse Resp B/P (MAP) Pulse Ox O2 Delivery O2 Flow Rate FiO2 02/05/17 08:34 Room Air 02/05/17 07:00 97.7 63 18 131/71 (91) 93 97.7 PHYSICAL EXAM Alert. Oriented to time, place and person. PERRL. EOMI. CN: no focal findings. Muscle tone: normal. Muscle strength: 5/5 DTR: 1+ Plantar reflex: flexor Gait: not examined in bed. Sensory exam: no abnormal findings. No cerebellar signs elicited. Right above the elbow amputation Review of Relevant I have reviewed the following items farrah (where applicable) has been applied. Labs Laboratory Tests Test 02/03/17 12:00 02/04/17 02:59 02/04/17 04:14 02/05/17 03:40 Nasal Screen MRSA (PCR) Negative (Negative) Urine Collection Type Unknown Urine Color Aditi Urine Clarity Cloudy Urine pH 7.0 Urine Specific [place] 1.020 Urine Protein Negative mg/dL (NEG-TRACE) Urine Glucose (UA) Negative mg/dL (NEG) Urine Ketones (Stick) Negative mg/dL (NEG) Urine Blood Negative (NEG) Urine Nitrite Negative (NEG) Urine Bilirubin Small (NEG) Urine Urobilinogen Dipstick 4.0 mg/dL (0.2 mg/dL) Urine Leukocyte Esterase Trace (NEG) Urine RBC 0 /HPF (0-2) Urine WBC 0 /HPF (0-4) Urine Squamous Epithelial Cells Few /LPF Urine Bacteria 0 /HPF (0-FEW) Urine Mucus Mod /LPF White Blood Count 3.4 x10^3/uL (4.0-11.0) 3.8 x10^3/uL (4.0-11.0) Red Blood Count 3.51 x10^6/uL (4.30-5.70) 3.57 x10^6/uL (4.30-5.70) Hemoglobin 11.4 g/dL (13.0-17.5) 11.6 g/dL (13.0-17.5) Hematocrit 32.8 % (39.0-53.0) 33.7 % (39.0-53.0) Mean Corpuscular Volume 93 fL (79-100) 95 fL (79-100) Mean Corpuscular Hemoglobin 33 pg (25-35) 32 pg (25-35) Mean Corpuscular Hemoglobin Concent 35 g/dL (31-37) 34 g/dL (31-37) Red Cell Distribution Width 24.1 % (11.5-14.5) 24.0 % (11.5-14.5) Platelet Count 61 x10^3/uL (140-400) 55 x10^3/uL (140-400) Neutrophils (%) (Auto) 31 % (31-73) 37 % (31-73) Lymphocytes (%) (Auto) 45 % (24-48) 43 % (24-48) Monocytes (%) (Auto) 14 % (0-9) 9 % (0-9) Eosinophils (%) (Auto) 9 % (0-3) 10 % (0-3) Basophils (%) (Auto) 1 % (0-3) 0 % (0-3) Neutrophils # (Auto) 1.0 x10^3uL (1.8-7.7) 1.4 x10^3uL (1.8-7.7) Lymphocytes # (Auto) 1.5 x10^3/uL (1.0-4.8) 1.7 x10^3/uL (1.0-4.8) Monocytes # (Auto) 0.5 x10^3/uL (0.0-1.1) 0.4 x10^3/uL (0.0-1.1) Eosinophils # (Auto) 0.3 x10^3/uL (0.0-0.7) 0.4 x10^3/uL (0.0-0.7) Basophils # (Auto) 0.0 x10^3/uL (0.0-0.2) 0.0 x10^3/uL (0.0-0.2) Sodium Level 144 mmol/L (136-145) 140 mmol/L (136-145) Potassium Level 3.1 mmol/L (3.5-5.1) 4.1 mmol/L (3.5-5.1) Chloride Level 110 mmol/L (98-107) 109 mmol/L (98-107) Carbon Dioxide Level 27 mmol/L (21-32) 25 mmol/L (21-32) Anion Gap 7 (6-14) 6 (6-14) Blood Urea Nitrogen 13 mg/dL (8-26) 11 mg/dL (8-26) Creatinine 0.8 mg/dL (0.7-1.3) 0.8 mg/dL (0.7-1.3) Estimated GFR (Cockcroft-Gault) 99.6 99.6 Glucose Level 103 mg/dL (70-99) 91 mg/dL (70-99) Calcium Level 8.4 mg/dL (8.5-10.1) 7.9 mg/dL (8.5-10.1) Phosphorus Level 3.2 mg/dL (2.6-4.7) Magnesium Level 1.7 mg/dL (1.8-2.4) 2.1 mg/dL (1.8-2.4) Vitamin B12 Level 1191 pg/mL (247-911) Thyroid Stimulating Hormone (TSH) 5.991 uIU/mL (0.358-3.74) Free Thyroxine 1.48 ng/dL (0.76-1.46) Laboratory Tests Test 02/05/17 03:40 White Blood Count 3.8 x10^3/uL (4.0-11.0) Red Blood Count 3.57 x10^6/uL (4.30-5.70) Hemoglobin 11.6 g/dL (13.0-17.5) Hematocrit 33.7 % (39.0-53.0) Mean Corpuscular Volume 95 fL (79-100) Mean Corpuscular Hemoglobin 32 pg (25-35) Mean Corpuscular Hemoglobin Concent 34 g/dL (31-37) Red Cell Distribution Width 24.0 % (11.5-14.5) Platelet Count 55 x10^3/uL (140-400) Neutrophils (%) (Auto) 37 % (31-73) Lymphocytes (%) (Auto) 43 % (24-48) Monocytes (%) (Auto) 9 % (0-9) Eosinophils (%) (Auto) 10 % (0-3) Basophils (%) (Auto) 0 % (0-3) Neutrophils # (Auto) 1.4 x10^3uL (1.8-7.7) Lymphocytes # (Auto) 1.7 x10^3/uL (1.0-4.8) Monocytes # (Auto) 0.4 x10^3/uL (0.0-1.1) Eosinophils # (Auto) 0.4 x10^3/uL (0.0-0.7) Basophils # (Auto) 0.0 x10^3/uL (0.0-0.2) Sodium Level 140 mmol/L (136-145) Potassium Level 4.1 mmol/L (3.5-5.1) Chloride Level 109 mmol/L (98-107) Carbon Dioxide Level 25 mmol/L (21-32) Anion Gap 6 (6-14) Blood Urea Nitrogen 11 mg/dL (8-26) Creatinine 0.8 mg/dL (0.7-1.3) Estimated GFR (Cockcroft-Gault) 99.6 Glucose Level 91 mg/dL (70-99) Calcium Level 7.9 mg/dL (8.5-10.1) Magnesium Level 2.1 mg/dL (1.8-2.4) Vitamin B12 Level 1191 pg/mL (247-911) Thyroid Stimulating Hormone (TSH) 5.991 uIU/mL (0.358-3.74) Free Thyroxine 1.48 ng/dL (0.76-1.46) Medications Current Medications Sodium Chloride 500 ml @ 0 mls/hr 1X ONCE IV Last administered on 02/03/17t 11 :04; Start 02/03/17 at 07:45; Stop 02/03/17 at 07:47; Status DC Ondansetron HCl (Zofran) 4 mg PRN Q8HRS PRN IV NAUSEA/VOMITING; Start 02/03/17 at 10:15; Stop 02/03/17 at 15:43; Status DC Pneumococcal Polyvalent Vaccine (Do NOT chart on this placeholder) 0.5 each 1X ONCE MC ; Start 02/03/17 at 14:00; Stop 02/03/17 at 14:01; Status UNV Pneumococcal Polyvalent Vaccine (Pneumovax 23) 0.5 ml ONCE ONCE VAX IM Last administered on 02/03/17 15:53; Start 02/03/17 at 14:15; Stop 02/03/17 at 14:16 ; Status DC Acetaminophen (Tylenol) 650 mg PRN Q6HRS PRN PO FEVER; Start 02/03/17 at 15:00 Ondansetron HCl (Zofran) 4 mg PRN Q6HRS PRN IV NAUSEA/VOMITING Last administered on 02/05/17 08:37; Start 02/03/17 at 15:00 Morphine Sulfate 4 mg PRN Q2HR PRN IV PAIN; Start 02/03/17 at 15:30 Tramadol HCl (Ultram) 50 mg PRN Q6HRS PRN PO MILD PAIN Last administered on 11:47; Start 02/03/17 at 15:00 Hydralazine HCl (Apresoline) 10 mg PRN Q4HRS PRN IVP ELEVATED BP, SEE COMMENTS ; Start 02/03/17 at 15:00 Docusate Sodium (Colace) 100 mg PRN DAILY PRN PO CONSTIPATION; Start 02/03/17 at 15:00 Oxycodone/ Acetaminophen (Percocet 5/325) 1 tab PRN Q4HRS PRN PO MODERATE - SEVERE PAIN Last administered on 02/04/17 09:02; Start 02/03/17 at 15:00; Stop 02/05/17 at 00:18; Status DC Diazepam (Valium) 5 mg PRN QHS PRN PO ANXIETY / AGITATION Last administered on 02/04/17 20:25; Start 02/03/17 at 16:30 Levetiracetam (Keppra) 500 mg BID PO Last administered on 02/04/17 09:00; Start 02/03/17 at 21:00; Stop 02/04/17 at 12:29; Status DC Pantoprazole Sodium (Protonix) 40 mg BIDAC PO Last administered on 02/05/17 08 :33; Start 02/03/17 at 16:30 Enoxaparin Sodium (Lovenox 40mg Syringe) 40 mg Q24H SQ Last administered on 17:11; Start 02/03/17 at 17:00; Stop 02/04/17 at 09:58; Status DC Potassium Chloride (Klor-Con) 40 meq 1X ONCE PO Last administered on 11:47; Start 02/04/17 at 10:30; Stop 02/04/17 at 10:31; Status DC Magnesium Sulfate/ Dextrose 50 ml @ 25 mls/hr 1X ONCE IV Last administered on 02/04/17 12:58; Start 02/04/17 at 11:00; Stop 02/04/17 at 12:59; Status DC Acetaminophen/ Hydrocodone Bitart (Lortab 10/325) 1 tab PRN Q6HRS PRN PO PAIN; Start 02/04/17 at 14:15; Status Cancel Oxycodone/ Acetaminophen (Percocet 10/325) 1 tab PRN Q4HRS PRN PO Pain Last administered on 02/05/17 08:34; Start 02/04/17 at 15:30 Active Scripts Active Protonix (Pantoprazole Sodium) 40 Mg Tablet.dr 1 Tab PO BID Percocet 5-325 Mg Tablet (Oxycodone/Acetaminophen) 1 Each Tablet 1-2 Tab PO Q4- 6HRS Reported Keppra (Levetiracetam) 500 Mg Tablet Unknown Dose PO Valium (Diazepam) 5 Mg Tablet 5 Mg PO PRN Vitals/I & O Vital Sign - Last 24 Hours 02/04/17 02/04/17 02/04/17 02/04/17 11:00 11:47 12:47 15:14 Temp 97.9 97.9 97.9 97.9 Pulse 58 59 Resp 18 20 20 18 B/P (MAP) 97/56 (70) 99/57 (71) Pulse Ox 95 96 O2 Delivery Room Air Room Air Room Air Room Air 02/04/17 02/04/17 02/04/17 02/04/17 15:47 19:00 19:45 20:25 Temp 98.8 98.8 Pulse 62 Resp 18 20 18 B/P (MAP) 105/62 (76) Pulse Ox 92 92 O2 Delivery Room Air Room Air Room Air Room Air 02/04/17 02/05/17 02/05/17 02/05/17 23:00 00:25 03:00 05:03 Temp 97.5 97.9 97.5 97.9 Pulse 61 56 Resp 20 18 20 18 B/P (MAP) 112/60 (77) 108/60 (76) Pulse Ox 94 94 92 92 O2 Delivery Room Air Room Air Room Air Room Air 02/05/17 02/05/17 02/05/17 02/05/17 06:03 07:00 08:00 08:34 Temp 97.7 97.7 Pulse 63 Resp 18 18 B/P (MAP) 131/71 (91) Pulse Ox 92 93 O2 Delivery Room Air Room Air Room Air Room Air WERO MORATAYA MD Feb 05, 2017 10:35
[2017-02-05 11:00] VITALS: BP 103/63
[2017-02-05] MEDS ORDERED: PHENAZOPYRIDINE 200 MG TABLET. PO PRN (11:30)
--- NOTE | 2017-02-05 13:20 | PDOC ---
PROGRESS NOTES Chief Complaint Chief Complaint fall from stairs with lightheaded, likely not syncoped. back pain with mechanical fall and chronic ext pain H/O hepatitis ABC GERD left wrist post fx sx right arm post amputation h/o alcoholism, but said off ETOH for 1 year h/o drug abuse with marijuana poor home environment hypokalemia hypomagnesemia pancytopenia, 2/2 alcoholism likely unsteady gait, some encephalopathy with mild dementia, likely 2/2 alcoholism hyperthyroidism plan: neuro consulted, no further intervention. dc denice for now asked nurse to get home meds from rehab check orthostatic bp carotid US neg telet pain contROL replete K, mag check tsh, vib12 dc dvt ppx gi ppx PTOT add pyridum add methimazole for now, doubt pt will be compliant with meds tho SW for home environment eval. i talked to PT and SW today. PT was in different hosp and SNF, however, he kept going out to drink and then came back to snf drunk and then now all SNF refused to take him back. PT told me pt walks ok , altho not steady. plan dc to homeless correction tmr. History of Present Illness History of Present Illness ROS: no fever, chills, sob or chest pain denies syncoped very poor historian. said he was out of [facility] rehab 4days ago, but told me only in the homeless correction for 1 day, and cannot reach his friend who has his money x2 days. now he told me he lost his apt where he lived for 3 months since in hosp for a long time. i told nurse to call the rehab, and they told us pt was DCed 1 month ago pt said he was taking many meds in the rehab, but doesnot know which ones he also said he had seizure history, but cannot tell me why or related to alcohol altho he told neuro 2/2 alcohol. + nausea, lightheaded dysuria Vitals Vitals Vital Signs Date Time Temp Pulse Resp B/P (MAP) Pulse Ox O2 Delivery O2 Flow Rate FiO2 02/05/17 11:00 97.7 55 18 103/63 (76) 98 Room Air 97.7 Physical Exam Physical Exam right neck has IV access right arm post amputation General: Alert, Oriented X3, Cooperative Heart: Regular rate, Normal S1 Lungs: Clear Abdomen: Normal bowel sounds, Soft Extremities: No clubbing, No cyanosis Skin: No rashes Labs LABS Laboratory Tests Test 02/05/17 03:40 White Blood Count 3.8 x10^3/uL (4.0-11.0) Red Blood Count 3.57 x10^6/uL (4.30-5.70) Hemoglobin 11.6 g/dL (13.0-17.5) Hematocrit 33.7 % (39.0-53.0) Mean Corpuscular Volume 95 fL (79-100) Mean Corpuscular Hemoglobin 32 pg (25-35) Mean Corpuscular Hemoglobin Concent 34 g/dL (31-37) Red Cell Distribution Width 24.0 % (11.5-14.5) Platelet Count 55 x10^3/uL (140-400) Neutrophils (%) (Auto) 37 % (31-73) Lymphocytes (%) (Auto) 43 % (24-48) Monocytes (%) (Auto) 9 % (0-9) Eosinophils (%) (Auto) 10 % (0-3) Basophils (%) (Auto) 0 % (0-3) Neutrophils # (Auto) 1.4 x10^3uL (1.8-7.7) Lymphocytes # (Auto) 1.7 x10^3/uL (1.0-4.8) Monocytes # (Auto) 0.4 x10^3/uL (0.0-1.1) Eosinophils # (Auto) 0.4 x10^3/uL (0.0-0.7) Basophils # (Auto) 0.0 x10^3/uL (0.0-0.2) Sodium Level 140 mmol/L (136-145) Potassium Level 4.1 mmol/L (3.5-5.1) Chloride Level 109 mmol/L (98-107) Carbon Dioxide Level 25 mmol/L (21-32) Anion Gap 6 (6-14) Blood Urea Nitrogen 11 mg/dL (8-26) Creatinine 0.8 mg/dL (0.7-1.3) Estimated GFR (Cockcroft-Gault) 99.6 Glucose Level 91 mg/dL (70-99) Calcium Level 7.9 mg/dL (8.5-10.1) Magnesium Level 2.1 mg/dL (1.8-2.4) Vitamin B12 Level 1191 pg/mL (247-911) Thyroid Stimulating Hormone (TSH) 5.991 uIU/mL (0.358-3.74) Free Thyroxine 1.48 ng/dL (0.76-1.46) Assessment and Plan Assessmemt and Plan Problems Medical Problems: (1) Cervical strain Status: Acute (2) Closed head injury Status: Acute (3) Multiple contusions Status: Acute (4) Pancytopenia Status: Acute (5) Syncope Status: Acute Problems: Comment Review of Relevant I have reviewed the following items farrah (where applicable) has been applied. Labs Laboratory Tests Test 02/04/17 02:59 02/04/17 04:14 02/05/17 03:40 Urine Collection Type Unknown Urine Color Aditi Urine Clarity Cloudy Urine pH 7.0 Urine Specific Imbler 1.020 Urine Protein Negative mg/dL (NEG-TRACE) Urine Glucose (UA) Negative mg/dL (NEG) Urine Ketones (Stick) Negative mg/dL (NEG) Urine Blood Negative (NEG) Urine Nitrite Negative (NEG) Urine Bilirubin Small (NEG) Urine Urobilinogen Dipstick 4.0 mg/dL (0.2 mg/dL) Urine Leukocyte Esterase Trace (NEG) Urine RBC 0 /HPF (0-2) Urine WBC 0 /HPF (0-4) Urine Squamous Epithelial Cells Few /LPF Urine Bacteria 0 /HPF (0-FEW) Urine Mucus Mod /LPF White Blood Count 3.4 x10^3/uL (4.0-11.0) 3.8 x10^3/uL (4.0-11.0) Red Blood Count 3.51 x10^6/uL (4.30-5.70) 3.57 x10^6/uL (4.30-5.70) Hemoglobin 11.4 g/dL (13.0-17.5) 11.6 g/dL (13.0-17.5) Hematocrit 32.8 % (39.0-53.0) 33.7 % (39.0-53.0) Mean Corpuscular Volume 93 fL (79-100) 95 fL (79-100) Mean Corpuscular Hemoglobin 33 pg (25-35) 32 pg (25-35) Mean Corpuscular Hemoglobin Concent 35 g/dL (31-37) 34 g/dL (31-37) Red Cell Distribution Width 24.1 % (11.5-14.5) 24.0 % (11.5-14.5) Platelet Count 61 x10^3/uL (140-400) 55 x10^3/uL (140-400) Neutrophils (%) (Auto) 31 % (31-73) 37 % (31-73) Lymphocytes (%) (Auto) 45 % (24-48) 43 % (24-48) Monocytes (%) (Auto) 14 % (0-9) 9 % (0-9) Eosinophils (%) (Auto) 9 % (0-3) 10 % (0-3) Basophils (%) (Auto) 1 % (0-3) 0 % (0-3) Neutrophils # (Auto) 1.0 x10^3uL (1.8-7.7) 1.4 x10^3uL (1.8-7.7) Lymphocytes # (Auto) 1.5 x10^3/uL (1.0-4.8) 1.7 x10^3/uL (1.0-4.8) Monocytes # (Auto) 0.5 x10^3/uL (0.0-1.1) 0.4 x10^3/uL (0.0-1.1) Eosinophils # (Auto) 0.3 x10^3/uL (0.0-0.7) 0.4 x10^3/uL (0.0-0.7) Basophils # (Auto) 0.0 x10^3/uL (0.0-0.2) 0.0 x10^3/uL (0.0-0.2) Sodium Level 144 mmol/L (136-145) 140 mmol/L (136-145) Potassium Level 3.1 mmol/L (3.5-5.1) 4.1 mmol/L (3.5-5.1) Chloride Level 110 mmol/L (98-107) 109 mmol/L (98-107) Carbon Dioxide Level 27 mmol/L (21-32) 25 mmol/L (21-32) Anion Gap 7 (6-14) 6 (6-14) Blood Urea Nitrogen 13 mg/dL (8-26) 11 mg/dL (8-26) Creatinine 0.8 mg/dL (0.7-1.3) 0.8 mg/dL (0.7-1.3) Estimated GFR (Cockcroft-Gault) 99.6 99.6 Glucose Level 103 mg/dL (70-99) 91 mg/dL (70-99) Calcium Level 8.4 mg/dL (8.5-10.1) 7.9 mg/dL (8.5-10.1) Phosphorus Level 3.2 mg/dL (2.6-4.7) Magnesium Level 1.7 mg/dL (1.8-2.4) 2.1 mg/dL (1.8-2.4) Vitamin B12 Level 1191 pg/mL (247-911) Thyroid Stimulating Hormone (TSH) 5.991 uIU/mL (0.358-3.74) Free Thyroxine 1.48 ng/dL (0.76-1.46) Laboratory Tests Test 02/05/17 03:40 White Blood Count 3.8 x10^3/uL (4.0-11.0) Red Blood Count 3.57 x10^6/uL (4.30-5.70) Hemoglobin 11.6 g/dL (13.0-17.5) Hematocrit 33.7 % (39.0-53.0) Mean Corpuscular Volume 95 fL (79-100) Mean Corpuscular Hemoglobin 32 pg (25-35) Mean Corpuscular Hemoglobin Concent 34 g/dL (31-37) Red Cell Distribution Width 24.0 % (11.5-14.5) Platelet Count 55 x10^3/uL (140-400) Neutrophils (%) (Auto) 37 % (31-73) Lymphocytes (%) (Auto) 43 % (24-48) Monocytes (%) (Auto) 9 % (0-9) Eosinophils (%) (Auto) 10 % (0-3) Basophils (%) (Auto) 0 % (0-3) Neutrophils # (Auto) 1.4 x10^3uL (1.8-7.7) Lymphocytes # (Auto) 1.7 x10^3/uL (1.0-4.8) Monocytes # (Auto) 0.4 x10^3/uL (0.0-1.1) Eosinophils # (Auto) 0.4 x10^3/uL (0.0-0.7) Basophils # (Auto) 0.0 x10^3/uL (0.0-0.2) Sodium Level 140 mmol/L (136-145) Potassium Level 4.1 mmol/L (3.5-5.1) Chloride Level 109 mmol/L (98-107) Carbon Dioxide Level 25 mmol/L (21-32) Anion Gap 6 (6-14) Blood Urea Nitrogen 11 mg/dL (8-26) Creatinine 0.8 mg/dL (0.7-1.3) Estimated GFR (Cockcroft-Gault) 99.6 Glucose Level 91 mg/dL (70-99) Calcium Level 7.9 mg/dL (8.5-10.1) Magnesium Level 2.1 mg/dL (1.8-2.4) Vitamin B12 Level 1191 pg/mL (247-911) Thyroid Stimulating Hormone (TSH) 5.991 uIU/mL (0.358-3.74) Free Thyroxine 1.48 ng/dL (0.76-1.46) Medications Current Medications Sodium Chloride 500 ml @ 0 mls/hr 1X ONCE IV Last administered on 02/03/17 11 :04; Start 02/03/17 at 07:45; Stop 02/03/17 at 07:47; Status DC Ondansetron HCl (Zofran) 4 mg PRN Q8HRS PRN IV NAUSEA/VOMITING; Start 02/03/17 at 10:15; Stop 02/03/17 at 15:43; Status DC Pneumococcal Polyvalent Vaccine (Do NOT chart on this placeholder) 0.5 each 1X ONCE MC ; Start 02/03/17 at 14:00; Stop 02/03/17 at 14:01; Status UNV Pneumococcal Polyvalent Vaccine (Pneumovax 23) 0.5 ml ONCE ONCE VAX IM Last administered on 02/03/17 15:53; Start 02/03/17 at 14:15; Stop 02/03/17 at 14:16 ; Status DC Acetaminophen (Tylenol) 650 mg PRN Q6HRS PRN PO FEVER; Start 02/03/17 at 15:00 Ondansetron HCl (Zofran) 4 mg PRN Q6HRS PRN IV NAUSEA/VOMITING Last administered on 02/05/17 08:37; Start 02/03/17 at 15:00 Morphine Sulfate 4 mg PRN Q2HR PRN IV PAIN; Start 02/03/17 at 15:30 Tramadol HCl (Ultram) 50 mg PRN Q6HRS PRN PO MILD PAIN Last administered on 11:47; Start 02/03/17 at 15:00 Hydralazine HCl (Apresoline) 10 mg PRN Q4HRS PRN IVP ELEVATED BP, SEE COMMENTS ; Start 02/03/17 at 15:00 Docusate Sodium (Colace) 100 mg PRN DAILY PRN PO CONSTIPATION; Start 02/03/17 at 15:00 Oxycodone/ Acetaminophen (Percocet 5/325) 1 tab PRN Q4HRS PRN PO MODERATE - SEVERE PAIN Last administered on 02/04/17 09:02; Start 02/03/17 at 15:00; Stop 02/05/17 at 00:18; Status DC Diazepam (Valium) 5 mg PRN QHS PRN PO ANXIETY / AGITATION Last administered on 02/04/17 20:25; Start 02/03/17 at 16:30 Levetiracetam (Keppra) 500 mg BID PO Last administered on 02/04/17 09:00; Start 02/03/17 at 21:00; Stop 02/04/17 at 12:29; Status DC Pantoprazole Sodium (Protonix) 40 mg BIDAC PO Last administered on 02/05/17 08 :33; Start 02/03/17 at 16:30 Enoxaparin Sodium (Lovenox 40mg Syringe) 40 mg Q24H SQ Last administered on 17:11; Start 02/03/17 at 17:00; Stop 02/04/17 at 09:58; Status DC Potassium Chloride (Klor-Con) 40 meq 1X ONCE PO Last administered on 11:47; Start 02/04/17 at 10:30; Stop 02/04/17 at 10:31; Status DC Magnesium Sulfate/ Dextrose 50 ml @ 25 mls/hr 1X ONCE IV Last administered on 02/04/17 12:58; Start 02/04/17 at 11:00; Stop 02/04/17 at 12:59; Status DC Acetaminophen/ Hydrocodone Bitart (Lortab 10/325) 1 tab PRN Q6HRS PRN PO PAIN; Start 02/04/17 at 14:15; Status Cancel Oxycodone/ Acetaminophen (Percocet 10/325) 1 tab PRN Q4HRS PRN PO Pain Last administered on 02/05/17t 08:34; Start 02/04/17 at 15:30 Phenazopyridine HCl (Pyridium) 200 mg PRN TID PRN PO URINARY PAIN; Start at 11:30 Active Scripts Active Protonix (Pantoprazole Sodium) 40 Mg Tablet.dr 1 Tab PO BID Percocet 5-325 Mg Tablet (Oxycodone/Acetaminophen) 1 Each Tablet 1-2 Tab PO Q4- 6HRS Reported Keppra (Levetiracetam) 500 Mg Tablet Unknown Dose PO Valium (Diazepam) 5 Mg Tablet 5 Mg PO PRN Vitals/I & O Vital Sign - Last 24 Hours 02/04/17 02/04/17 02/04/17 02/04/17 15:14 15:47 19:00 19:45 Temp 97.9 98.8 97.9 98.8 Pulse 59 62 Resp 18 18 20 B/P (MAP) 99/57 (71) 105/62 (76) Pulse Ox 96 92 O2 Delivery Room Air Room Air Room Air Room Air 02/04/17 02/04/17 02/05/17 02/05/17 20:25 23:00 00:25 03:00 Temp 97.5 97.9 97.5 97.9 Pulse 61 56 Resp 18 20 18 20 B/P (MAP) 112/60 (77) 108/60 (76) Pulse Ox 92 94 94 92 O2 Delivery Room Air Room Air Room Air Room Air 02/05/17 02/05/17 02/05/17 02/05/17 05:03 06:03 07:00 08:00 Temp 97.7 97.7 Pulse 63 Resp 18 18 18 B/P (MAP) 131/71 (91) Pulse Ox 92 92 93 O2 Delivery Room Air Room Air Room Air Room Air 02/05/17 02/05/17 08:34 11:00 Temp 97.7 97.7 Pulse 55 Resp 18 B/P (MAP) 103/63 (76) Pulse Ox 98 O2 Delivery Room Air Room Air Intake and Output 02/05/17 02/05/17 02/06/17 15:00 23:00 07:00 Intake Total 250 ml Balance 250 ml CHICO MANZANARES MD Feb 05, 2017 13:20
[2017-02-05 15:00] VITALS: BP 108/63
[2017-02-05] MEDS: methIMAzole 10 MG TABLET PO SCH ×2 (15:03→19:53)
[2017-02-05 19:15] VITALS: BP 105/55
[2017-02-05] MEDS: diazePAM 5 MG TABLET PO PRN (19:36)
[2017-02-05 23:07] VITALS: BP 96/52
[2017-02-06] MEDS: oxyCODONE/APAP 10/325 1 TAB TABLET PO PRN ×4 (00:47→13:34)
[2017-02-06 03:00] VITALS: BP 97/58
[2017-02-06 07:00] VITALS: BP 104/68
[2017-02-06] MEDS: methIMAzole 10 MG TABLET PO SCH ×2 (08:43→13:34)
[2017-02-06] MEDS: PANTOPRAZOLE 40 MG TABLET.DR. PO SCH ×2 (08:43→16:00)
[2017-02-06] MEDS ORDERED: OXYC1TAB9 PO (10:15)
[2017-02-06] MEDS ORDERED: METH-364 PO (10:15)
[2017-02-06 11:00] VITALS: BP 116/65
--- NOTE | 2017-02-06 11:24 | PDOC3 ---
Discharge Summary [facility] Date of Admission: Feb 03, 2017 Discharge Date: Feb 06, 2017 Admitting Diagnosis fall from stairs with lightheaded, likely not syncoped. back pain with mechanical fall and chronic ext pain H/O hepatitis ABC GERD left wrist post fx sx right arm post amputation h/o alcoholism, but said off ETOH for 1 year h/o drug abuse with marijuana poor home environment hypokalemia hypomagnesemia pancytopenia, 2/2 alcoholism likely unsteady gait, some encephalopathy with mild dementia, likely 2/2 alcoholism hyperthyroidism uncompliance Problems: Final Diagnosis CONSULTS neuro Brief Hospital Course Patient is a 57 year old male who presents with fall, and syncope today. pt is a very poor historian. He said he was recently in rehab post his right shoulder amputation from falling. He also said he has an apt but then told me he has been in a homeless snf last week after dc from rehab 4 days ago, and not on any meds for at least days including the pain pain meds. Today he was walking downstairs, then felt lightheaded and denies syncoped. now he c/o back pain, and right shoulder pain ,and left wrist pain which he got fx 6months ago. all images in ER is ok except chronic changes. pt is a very poor historian. said he was out of [facility] rehab 4days ago, but told me only in the homeless snf for 1 day, and cannot reach his friend who has his money x2 days. now he told me he lost his apt where he lived for 3 months since in hosp for a long time. i told nurse to call the rehab, and they told us pt was DCed 1 month ago. SW for home environment eval. PT was in different hosp and SNF, however, he kept going out to drink and then came back to snf drunk and then now all SNF refused to take him back. waiting to talk to PT again today, if pt is close to do basic activities, will dc to homeless snf today. Pt wants to go to his freinds home, but said cannot reach his freinds for a long time. dc time 35min Physical Exam right neck has IV access right arm post amputation General: Alert, Oriented X3, Cooperative Heart: Regular rate, Normal S1 Lungs: Clear Abdomen: Normal bowel sounds, Soft Extremities: No clubbing, No cyanosis Skin: No rashes Patient History: Diabetes mellitus 32 MOTHER FH: CHF (congestive heart failure) 33 FATHER 32 MOTHER FH: cancer 33 FATHER 32 MOTHER Family history: Suicide (situation) Problems: Disposition homeless snf CONDITION AT DISCHARGE: Improved Diet regular Scheduled Methimazole (Methimazole), 5 MG PO TID Oxycodone/Apap 5-325 (Percocet 5-325 Mg Tablet), 1-2 TAB PO Q4-6HRS Pantoprazole Sodium (Protonix), 1 TAB PO BID Scheduled PRN Diazepam (Valium), 5 MG PO for ANXIETY / AGITATION, (Reported) Oxycodone Hcl/Acetaminophen (Oxycodone-Acetaminophen 10-325), 1 TAB PO PRN Q4HRS PRN for MODERATE TO SEVERE PAIN Discontinued Medications Levetiracetam (Keppra), Unknown Dose PO, (Reported) Follow Up pcp in 2 weeks CHICO MANZANARES MD Feb 06, 2017 11:24
--- NOTE | 2017-02-06 14:37 | PDOC ---
PROGRESS NOTES Assessment Problems Medical Problems: (1) Cervical strain Status: Acute (2) Closed head injury Status: Acute (3) Multiple contusions Status: Acute (4) Pancytopenia Status: Acute (5) Syncope Status: Acute The patient says he slipped down some stairs, and did not lose consciousness. No one reported any type of seizure activity this time. He has a history of seizures related alcohol, but he has had none, he says, and over a year. He is a poor historian but otherwise shows no evidence of dementia, he still may have some cognitive impairment from alcohol Gait disorder, probably alcohol-related. He does have cervical spondylosis but no bedside evidence of myelopathy. Plan He needs SNU placement due to the gait disorder, but I see from the social work instructor's note that he has exhausted all of his shelter rehabilitation benefits and therefore he is going home with a friend. Follow-up with neurology as needed. Subjective He complains of chronic pain in the right arm and chest ever since his amputation Objective Vital Signs Date Time Temp Pulse Resp B/P (MAP) Pulse Ox O2 Delivery O2 Flow Rate FiO2 02/06/17 13:34 94 Room Air 02/06/17 11:00 97.7 63 18 116/65 (82) 97.7 Intake and Output 02/07/17 07:00 Intake Total 490 ml Output Total 200 ml Balance 290 ml Intake Oral 490 ml Output Urine Total 200 ml PHYSICAL EXAM Alert. Oriented to time, place and person. PERRL. EOMI. CN: no focal findings. Muscle tone: normal. Muscle strength: 5/5 DTR: 1+ Plantar reflex: flexor Gait: not examined in bed. Sensory exam: no abnormal findings. No cerebellar signs elicited. Right above the elbow amputation Review of Relevant I have reviewed the following items farrah (where applicable) has been applied. Labs Laboratory Tests Test 02/05/17 03:40 White Blood Count 3.8 x10^3/uL (4.0-11.0) Red Blood Count 3.57 x10^6/uL (4.30-5.70) Hemoglobin 11.6 g/dL (13.0-17.5) Hematocrit 33.7 % (39.0-53.0) Mean Corpuscular Volume 95 fL (79-100) Mean Corpuscular Hemoglobin 32 pg (25-35) Mean Corpuscular Hemoglobin Concent 34 g/dL (31-37) Red Cell Distribution Width 24.0 % (11.5-14.5) Platelet Count 55 x10^3/uL (140-400) Neutrophils (%) (Auto) 37 % (31-73) Lymphocytes (%) (Auto) 43 % (24-48) Monocytes (%) (Auto) 9 % (0-9) Eosinophils (%) (Auto) 10 % (0-3) Basophils (%) (Auto) 0 % (0-3) Neutrophils # (Auto) 1.4 x10^3uL (1.8-7.7) Lymphocytes # (Auto) 1.7 x10^3/uL (1.0-4.8) Monocytes # (Auto) 0.4 x10^3/uL (0.0-1.1) Eosinophils # (Auto) 0.4 x10^3/uL (0.0-0.7) Basophils # (Auto) 0.0 x10^3/uL (0.0-0.2) Sodium Level 140 mmol/L (136-145) Potassium Level 4.1 mmol/L (3.5-5.1) Chloride Level 109 mmol/L (98-107) Carbon Dioxide Level 25 mmol/L (21-32) Anion Gap 6 (6-14) Blood Urea Nitrogen 11 mg/dL (8-26) Creatinine 0.8 mg/dL (0.7-1.3) Estimated GFR (Cockcroft-Gault) 99.6 Glucose Level 91 mg/dL (70-99) Calcium Level 7.9 mg/dL (8.5-10.1) Magnesium Level 2.1 mg/dL (1.8-2.4) Vitamin B12 Level 1191 pg/mL (247-911) Thyroid Stimulating Hormone (TSH) 5.991 uIU/mL (0.358-3.74) Free Thyroxine 1.48 ng/dL (0.76-1.46) Microbiology 02/04/17 Urine Culture - Preliminary, Resulted 02/04/17 Urine Culture Result 1 (FREDY) - Preliminary, Resulted Medications Current Medications Sodium Chloride 500 ml @ 0 mls/hr 1X ONCE IV Last administered on 02/03/17t 11 :04; Start 02/03/17 at 07:45; Stop 02/03/17 at 07:47; Status DC Ondansetron HCl (Zofran) 4 mg PRN Q8HRS PRN IV NAUSEA/VOMITING; Start 02/03/17 at 10:15; Stop 02/03/17 at 15:43; Status DC Pneumococcal Polyvalent Vaccine (Do NOT chart on this placeholder) 0.5 each 1X ONCE MC ; Start 02/03/17 at 14:00; Stop 02/03/17 at 14:01; Status UNV Pneumococcal Polyvalent Vaccine (Pneumovax 23) 0.5 ml ONCE ONCE VAX IM Last administered on 02/03/17 15:53; Start 02/03/17 at 14:15; Stop 02/03/17 at 14:16 ; Status DC Acetaminophen (Tylenol) 650 mg PRN Q6HRS PRN PO FEVER; Start 02/03/17 at 15:00 Ondansetron HCl (Zofran) 4 mg PRN Q6HRS PRN IV NAUSEA/VOMITING Last administered on 02/05/17 08:37; Start 02/03/17 at 15:00 Morphine Sulfate 4 mg PRN Q2HR PRN IV PAIN; Start 02/03/17 at 15:30 Tramadol HCl (Ultram) 50 mg PRN Q6HRS PRN PO MILD PAIN Last administered on 11:47; Start 02/03/17 at 15:00 Hydralazine HCl (Apresoline) 10 mg PRN Q4HRS PRN IVP ELEVATED BP, SEE COMMENTS ; Start 02/03/17 at 15:00 Docusate Sodium (Colace) 100 mg PRN DAILY PRN PO CONSTIPATION; Start 02/03/17 at 15:00 Oxycodone/ Acetaminophen (Percocet 5/325) 1 tab PRN Q4HRS PRN PO MODERATE - SEVERE PAIN Last administered on 02/04/17 09:02; Start 02/03/17 at 15:00; Stop 02/05/17 at 00:18; Status DC Diazepam (Valium) 5 mg PRN QHS PRN PO ANXIETY / AGITATION Last administered on 02/05/17 19:36; Start 02/03/17 at 16:30 Levetiracetam (Keppra) 500 mg BID PO Last administered on 02/04/17 09:00; Start 02/03/17 at 21:00; Stop 02/04/17 at 12:29; Status DC Pantoprazole Sodium (Protonix) 40 mg BIDAC PO Last administered on 02/06/17 08 :43; Start 02/03/17 at 16:30 Enoxaparin Sodium (Lovenox 40mg Syringe) 40 mg Q24H SQ Last administered on 17:11; Start 02/03/17 at 17:00; Stop 02/04/17 at 09:58; Status DC Potassium Chloride (Klor-Con) 40 meq 1X ONCE PO Last administered on 11:47; Start 02/04/17 at 10:30; Stop 02/04/17 at 10:31; Status DC Magnesium Sulfate/ Dextrose 50 ml @ 25 mls/hr 1X ONCE IV Last administered on 02/04/17 12:58; Start 02/04/17 at 11:00; Stop 02/04/17 at 12:59; Status DC Acetaminophen/ Hydrocodone Bitart (Lortab 10/325) 1 tab PRN Q6HRS PRN PO PAIN; Start 02/04/17 at 14:15; Status Cancel Oxycodone/ Acetaminophen (Percocet 10/325) 1 tab PRN Q4HRS PRN PO MODERATE TO SEVERE PAIN Last administered on 02/06/17 13:34; Start 02/04/17 at 15:30 Phenazopyridine HCl (Pyridium) 200 mg PRN TID PRN PO URINARY PAIN Last administered on 02/05/17 17:15; Start 02/05/17 at 11:30 Methimazole (Tapazole) 5 mg TID PO Last administered on 02/06/17 13:34; Start 02/05/17 at 14:00 Active Scripts Active Oxycodone-Acetaminophen 10-325 (Oxycodone Hcl/Acetaminophen) 1 Each Tablet 1 Tab PO PRN Q4HRS PRN Methimazole 10 Mg Tablet 5 Mg PO TID 30 Days Protonix (Pantoprazole Sodium) 40 Mg Tablet.dr 1 Tab PO BID Percocet 5-325 Mg Tablet (Oxycodone/Acetaminophen) 1 Each Tablet 1-2 Tab PO Q4- 6HRS Reported Valium (Diazepam) 5 Mg Tablet 5 Mg PO PRN Vitals/I & O Vital Sign - Last 24 Hours 02/05/17 02/05/17 02/05/17 02/05/17 15:00 15:02 19:15 19:36 Temp 97.6 99.0 97.6 99.0 Pulse 54 60 Resp 18 16 18 B/P (MAP) 108/63 (78) 105/55 (72) Pulse Ox 97 95 97 O2 Delivery Room Air Room Air Room Air Room Air 02/05/17 02/05/17 02/06/17 02/06/17 19:56 23:07 00:47 03:00 Temp 98.2 98.2 98.2 98.2 Pulse 56 59 Resp 14 18 16 B/P (MAP) 96/52 (67) 97/58 (71) Pulse Ox 94 94 94 O2 Delivery Room Air Room Air Room Air Room Air 02/06/17 02/06/17 02/06/17 02/06/17 05:11 07:00 08:00 08:45 Temp 97.5 97.5 Pulse 76 Resp 18 18 B/P (MAP) 104/68 (80) Pulse Ox 94 100 100 O2 Delivery Room Air Room Air Room Air Room Air 02/06/17 02/06/17 02/06/17 10:07 11:00 13:34 Temp 97.7 97.7 Pulse 63 Resp 18 18 B/P (MAP) 116/65 (82) Pulse Ox 100 94 94 O2 Delivery Room Air Room Air Room Air Intake and Output 02/06/17 02/06/17 02/07/17 15:00 23:00 07:00 Intake Total 490 ml Output Total 200 ml Balance 290 ml WERO MORATAYA MD Feb 06, 2017 14:37
[2017-02-06 15:00] VITALS: BP 127/55
== END 2017-02-06 17:53 | disposition home or self-care (01) | DRG 57 ==
LOC: ER 07:32 → 5 NORTH 09:36
PROVIDERS: ADMIT Internal Medicine; ATTEND Internal Medicine
DX: G31.2 Degeneration of nervous system due to alcohol (principal); D61.818 Other pancytopenia; E44.0 Moderate protein-calorie malnutrition; S09.90XA Unspecified injury of head, initial encounter; E83.42 Hypomagnesemia; G62.9 Polyneuropathy, unspecified; F03.90 Unspecified dementia, unspecified severity, without behavioral disturbance, psychotic disturbance, mood disturbance, and anxiety; W10.9XXA Fall (on) (from) unspecified stairs and steps, initial encounter; F02.80 Dementia in other diseases classified elsewhere, unspecified severity, without behavioral disturbance, psychotic disturbance, mood disturbance, and anxiety; M54.9 Dorsalgia, unspecified; F10.20 Alcohol dependence, uncomplicated; F12.10 Cannabis abuse, uncomplicated; E87.6 Hypokalemia; E05.90 Thyrotoxicosis, unspecified without thyrotoxic crisis or storm; G89.29 Other chronic pain; I10 Essential (primary) hypertension; K21.9 Gastro-esophageal reflux disease without esophagitis; S16.1XXA Strain of muscle, fascia and tendon at neck level, initial encounter; Z85.07 Personal history of malignant neoplasm of pancreas; F32.9 Major depressive disorder, single episode, unspecified; Z59.0 Homelessness; Z83.3 Family history of diabetes mellitus; Z82.49 Family history of ischemic heart disease and other diseases of the circulatory system; Z81.8 Family history of other mental and behavioral disorders
CPT/HCPCS: 36415; 70450; 71101; 72125; 73060; 73110; 73562; 80048; 80053; 80307; 81001; 82607; 83735; 83880; 84100; 84439; 84443; 84484; 85025; 85610; 87086; 87641; 90732; 93005; 93880; 96360; G0480; J1650; J2405; J7040; J7060; 97116; 97530; 97535; 99285-25; G0479

== ENCOUNTER 2017-02-08 17:44 | Emergency (ER) | payer OTHER ==
[~2017-02-08] VITALS: Ht 167.6 cm; Wt 54.4 kg
[~2017-02-08 17:44] MED LIST changes: +METH-364 PO; +OXYC1TAB9 PO
--- NOTE | 2017-02-08 19:55 | PHYS DOC ---
Past Medical History Past Medical History: Cancer, GERD, Hepatitis, Seizure, Additional Disease Additional Past Medical Histor: Hepatitis A,B,C, PANCREATIC CANCER Past Surgical History: Other Additional Past Surgical Histo: R)arm above elbow amputation. Alcohol Use: Heavy Drug Use: Marijuana Adult General Chief Complaint Chief Complaint: NAUSEA/VOMITING/DIARRHA HPI HPI Patient is a 57 year old M who presents with nausea/vomiting after receiving a flu shot yesterday. Patient states that he has an egg allergy and he received the flu shot yesterday and started having nausea/vomiting. Patient states he's had some general has abdominal tenderness with the symptoms. Patient denies any fevers. Patient denies any other symptoms. Review of Systems Review of Systems GEN: Denies fevers, chills, sweats HEENT: Denies blurred vision, sore throat CV: Denies chest pain RESP: Denies shortness of air, cough GI: n/v NEURO: Denies confusion, dizziness MSK: Denies weakness, joint pain/swelling Allergies Allergies Allergies Coded Allergies Type Severity Reaction Last Updated Verified codeine Allergy Intermediate hived 04/25/16 Yes egg Allergy Intermediate 04/25/16 Yes Physical Exam Physical Exam GEN.: No apparent distress. Alert and oriented. HEENT: Head is normocephalic, atraumatic NECK: Supple. LUNGS: CTAB. HEART: RRR, S1, S2 present. Peripheral pulses intact ABDOMEN: Soft, mild generalized abdominal tenderness, no rebound tenderness, no distention. Positive bowel sounds. EXTREMITIES: Without any cyanosis. NEUROLOGIC: Normal speech, normal tone PSYCHIATRIC: Normal affect, normal mood. SKIN: No ulcerations Current Patient Data Vital Signs Vital Signs Date Time Temp Pulse Resp B/P (MAP) Pulse Ox O2 Delivery O2 Flow Rate FiO2 02/08/17 19:10 98.0 73 20 130/73 (92) 100 Room Air 98.0 Lab Values Laboratory Tests Test 02/08/17 20:45 02/08/17 21:13 White Blood Count 4.4 x10^3/uL (4.0-11.0) Red Blood Count 3.48 x10^6/uL (4.30-5.70) L Hemoglobin 11.3 g/dL (13.0-17.5) L Hematocrit 33.5 % (39.0-53.0) L Mean Corpuscular Volume 96 fL (79-100) Mean Corpuscular Hemoglobin 33 pg (25-35) Mean Corpuscular Hemoglobin Concent 34 g/dL (31-37) Red Cell Distribution Width 23.3 % (11.5-14.5) H Platelet Count 57 x10^3/uL (140-400) L Neutrophils (%) (Auto) 33 % (31-73) Lymphocytes (%) (Auto) 44 % (24-48) Monocytes (%) (Auto) 21 % (0-9) H Eosinophils (%) (Auto) 2 % (0-3) Basophils (%) (Auto) 0 % (0-3) Neutrophils # (Auto) 1.5 x10^3uL (1.8-7.7) L Lymphocytes # (Auto) 1.9 x10^3/uL (1.0-4.8) Monocytes # (Auto) 0.9 x10^3/uL (0.0-1.1) Eosinophils # (Auto) 0.1 x10^3/uL (0.0-0.7) Basophils # (Auto) 0.0 x10^3/uL (0.0-0.2) Platelet Estimate Pending Sodium Level 142 mmol/L (136-145) Potassium Level 3.9 mmol/L (3.5-5.1) Chloride Level 109 mmol/L (98-107) H Carbon Dioxide Level 22 mmol/L (21-32) Anion Gap 11 (6-14) Blood Urea Nitrogen 25 mg/dL (8-26) Creatinine 1.0 mg/dL (0.7-1.3) Estimated GFR (Cockcroft-Gault) 77.0 BUN/Creatinine Ratio 25 (6-20) H Glucose Level 90 mg/dL (70-99) Calcium Level 9.4 mg/dL (8.5-10.1) Total Bilirubin 1.9 mg/dL (0.2-1.0) H Aspartate Amino Transferase (AST) 92 U/L (15-37) H Alanine Aminotransferase (ALT) 46 U/L (16-63) Alkaline Phosphatase 85 U/L (46-116) Total Protein 7.1 g/dL (6.4-8.2) Albumin 2.6 g/dL (3.4-5.0) L Albumin/Globulin Ratio 0.6 (1.0-1.7) L Lipase 145 U/L (73-393) Urine Collection Type Unknown Urine Color Aditi Urine Clarity Turbid Urine pH 6.5 Urine Specific [place]co 1.020 Urine Protein Negative mg/dL (NEG-TRACE) Urine Glucose (UA) Negative mg/dL (NEG) Urine Ketones (Stick) Trace mg/dL (NEG) Urine Blood Negative (NEG) Urine Nitrite Negative (NEG) Urine Bilirubin Small (NEG) Urine Urobilinogen Dipstick 1.0 mg/dL (0.2 mg/dL) Urine Leukocyte Esterase Small (NEG) Urine RBC Occ /HPF (0-2) Urine WBC 5-10 /HPF (0-4) Urine Squamous Epithelial Cells Occ /LPF Urine Bacteria 0 /HPF (0-FEW) Urine Hyaline Casts Moderate /HPF Urine Mucus Mod /LPF Laboratory Tests 02/08/17 20:45 Laboratory Tests 02/08/17 20:45 EKG EKG [] Radiology/Procedures Radiology/Procedures CT scan: Impression: 1. No acute inflammatory process identified in the abdomen or pelvis. 2. Apparent low-attenuation lesion involving the pancreatic head versus adjacent the pancreatic head. Evaluation is limited secondary to lack of intravenous contrast. 3. Cholelithiasis.[] Course & Med Decision Making Course & Med Decision Making Pertinent Labs and Imaging studies reviewed. (See chart for details) Patient was seen and evaluated emergency room abdominal workup was ordered along with a CT scan 2200: Patient was updated on lab work and CT findings. Patient feels much better and ready go home. Patient was made aware of abnormal finding around the pancreas and told to follow up as PCP next week for further evaluation and management. MDM: After reviewing the chart, CC/HPI/PMH, physical exam, [lab results], [ radiological results], I do not believe the patient has emergent medical condition warranting further workup and/or admission at this time. Patient is made aware of his abnormal findings on the pancreas and will follow-up as PCP for further evaluation and management of it. Patient is stable for discharge. Additional verbal discharge instructions were provided to the patient and that if symptoms get worse or any new symptoms arise that are worrisome to the patient he is to return to the emergency room immediately [] Dragon Disclaimer Dragon Disclaimer This electronic medical record was generated, in whole or in part, using a voice recognition dictation system. Departure Departure Impression: Primary Impression: Nausea and vomiting Additional Impression: Abdominal pain Disposition: 01 HOME, SELF-CARE Condition: IMPROVED Referrals: CHESTER MOSCOSO MD (PCP) Patient Instructions: Nausea and Vomiting, [id number] Additional Instructions: Please follow up with your family physician in the next one to 2 days and return symptoms increase Scripts Ondansetron (ZOFRAN ODT) 4 Mg Tab.rapdis 1 TAB SL Q8HRS, #10 TAB Prov: EBENEZER GLYNN DO 02/08/17 Problem Qualifiers EBENEZER GLYNN DO Feb 08, 2017 19:55
--- NOTE | 2017-02-08 20:53 | RAD ---
History: Abdominal pain. Comparison: None. Technique: CT of the abdomen and pelvis was performed without intravenous or oral contrast. Exposure: One or more of the following individualized dose reduction techniques were utilized for this examination: 1. Automated exposure control 2. Adjustment of the mA and/or kV according to patient size 3. Use of iterative reconstruction technique Findings: Evaluation of solid organs is limited by lack of intravenous contrast. Evaluation of enteric structures may be limited by lack of oral contrast. Images of lower chest demonstrate fat-containing right Bochdalek hernia. Bilateral gynecomastia is incompletely seen. Calcified splenic and hepatic granuloma are seen. Bilateral adrenal glands unremarkable. Bilateral kidneys are without evidence of stone. Aortic atherosclerosis is seen. Appendix without evidence of inflammation. Urinary bladder is unremarkable. No bowel obstruction or inflammation is identified. Cholelithiasis is seen. There is apparently an elongated low-density lesion involving the pancreatic head versus adjacent to the pancreatic head measuring roughly 3.6 x 1.1 cm. This is not not well evaluated secondary to lack of intravenous contrast. Impression: 1. No acute inflammatory process identified in the abdomen or pelvis. 2. Apparent low-attenuation lesion involving the pancreatic head versus adjacent the pancreatic head. Evaluation is limited secondary to lack of intravenous contrast. 3. Cholelithiasis. Electronically signed by: Fam Herrera MD (02/08/2017 8:50 PM) [place] [id number]
[2017-02-08 20:59] LABS: BASO % 0 % (0-3); EOS % 2 % (0-3); HEMATOCRIT 33.5 % (39.0-53.0); HEMOGLOBIN 11.3 g/dL (13.0-17.5); LYMPH # 1.9 x10^3/uL (1.0-4.8); LYMPH % 44 % (24-48); MEAN CORPUSCULAR HEMOGLOBIN 33 pg (25-35); MEAN CORPUSCULAR HGB CONC 34 g/dL (31-37); MEAN CORPUSCULAR VOLUME 96 fL (79-100); MONO % 21 % (0-9); NEUT % 33 % (31-73); PLATELET COUNT 57 x10^3/uL (140-400); RED BLOOD COUNT 3.48 x10^6/uL (4.30-5.70); RED CELL DISTRIBUTION WIDTH 23.3 % (11.5-14.5); WHITE BLOOD COUNT 4.4 x10^3/uL (4.0-11.0)
[2017-02-08 21:18] LABS: CALCIUM 9.4 mg/dL (8.5-10.1); POTASSIUM 3.9 mmol/L (3.5-5.1)
[2017-02-08 21:21] LABS: BILIRUBIN,URINE SMALL (NEG); GLUCOSE,URINE NEGATIVE (NEG); NITRITE,URINE NEGATIVE (NEG); PH,URINE 6.5; PROTEIN,URINE NEGATIVE (NEG-TRACE)
[2017-02-08 21:22] LABS: ALBUMIN 2.6 g/dL (3.4-5.0); ALBUMIN/GLOBULIN RATIO 0.6 (1.0-1.7); TOTAL BILIRUBIN 1.9 mg/dL (0.2-1.0); TOTAL PROTEIN 7.1 g/dL (6.4-8.2)
[2017-02-08 21:30] VITALS: BP 110/63
[2017-02-08 21:31] LABS: BACTERIA,URINE 0 /HPF (0-FEW); RBC,URINE OCC /HPF (0-2); SQUAMOUS EPITHELIAL CELL,UR OCC /LPF
[2017-02-08 21:59] LABS: % EOS 1 % (0-5); PLT ESTIMATE DECREASED (ADEQUATE)
[2017-02-08 22:03] LABS: ANISOCYTOSIS SLIGHT
[2017-02-08] MEDS ORDERED: ONDA4TAB10 SL (22:06)
== END 2017-02-08 22:44 | disposition home or self-care (01) ==
LOC: ER 17:44
DX: R11.2 Nausea with vomiting, unspecified (principal); R10.84 Generalized abdominal pain; K21.9 Gastro-esophageal reflux disease without esophagitis; F10.20 Alcohol dependence, uncomplicated; F12.10 Cannabis abuse, uncomplicated; Z85.07 Personal history of malignant neoplasm of pancreas; Z88.5 Allergy status to narcotic agent; Z91.012 Allergy to eggs
CPT/HCPCS: 36415; 74176; 80053; 81001; 83690; 85007; 85025; 87086; 99285-25